=== PATIENT | female | born 1935 | race Caucasian/White ===

== ENCOUNTER 2017-02-22 15:23 | Inpatient (IN) ==
--- NOTE | 2017-02-22 16:30 | Emergency Department Note ---
Disposition Clinical Impression: Hyperglycemia UTI (urinary tract infection) Qualifiers: Urinary tract infection type: acute cystitis Hematuria presence: without hematuria Qualified Code(s): N30.00 - Acute cystitis without hematuria Disposition: Admitted As Inpatient Condition: Good General Adult HPI - General Chief complaint: ED General Medical Stated complaint: Elevated blood suagr Source: patient, family Mode of arrival: private vehicle Limitations: other (dementia) Nursing Notes Reviewed: Yes Vital Signs Reviewed: Yes - History of Present Illness HPI Narrative: Patient presents to the ED complaining of elevated glucose reading. Readings today have been over 600 at home. Daughter states her sugars have been high ever since she was discharged earlier this month after a brief hospitalization for possible cellulitis of her great toe. She is a long-standing diabetic and is on Lantus 12 units at night as well as NovoLog sliding scale. Daughter states her sugars are usually in the 170s in the morning, 300s in the afternoon and up to the 500s by the evening. States before her last hospitalization her sugars were typically in the low 200s. She was on IV antibiotics while hospitalized but not on any antibiotics on discharge. She is supposed to follow -up with podiatry but refused to go. Patient complained of abdominal pain, nausea, and diarrhea and vomiting she days ago and states this is why she did not go to her podiatry appointment. He also states she had 2 episodes of chest pain yesterday. Denies any chest pain today or any GI complaints today. She had a normal bowel movement this morning. Denies any urinary symptoms but she does wear depends for chronic urinary incontinence. Take some Tylenol for headache earlier. She reports chills but no fever. She has had some rhinorrhea but no sore throat or sneezing. She has a chronic dry cough with a history of COPD. She wears 2 L of oxygen at night. No recent travel or sick contacts. Daughter states she saw her PCP yesterday and admitted to trying to "starve herself" in order to better control her sugars and was found to have lost 14 pounds in the past weeks. Her PCP, Dr. Ferris instructed the daughter to bring her to the ED if her sugars were over over 300 and he felt that she needed possible inpatient management for better control of her glucose. Therefore with her high readings today daughter brought her to the ED. On arrival fingerstick glucose was 516 followed by 520. Pain Scale: 0 - Related Data Home Medications Medication Instructions Recorded Confirmed Citalopram Hydrobromide [Celexa] 20 mg PO DAILY 05/15/15 02/22/17 Aspirin [Adult Low Dose Aspirin EC] 81 mg PO QAM 08/09/15 02/22/17 Atorvastatin [Lipitor] 10 mg PO HS 08/09/15 02/22/17 Insulin Glargine,Hum.rec.anlog 12 unit SQ HS 08/09/15 02/22/17 [Lantus Solostar] Levothyroxine [Synthroid] 25 mcg PO QAM 08/09/15 02/22/17 Spironolact/Hydrochlorothiazid 1 each PO QAM 08/09/15 02/22/17 [Aldactazide 25-25 Tablet] Carbidopa/Levodopa 1 each PO TID 02/05/17 02/22/17 [Carbidopa-Levodopa 25-100 Tab] Cranberry Conc/C/Bacill Coag [Azo 1 each PO DAILY 02/05/17 02/22/17 Cranberry Tablet] Fenofibrate Nanocrystallized 48 mg PO DAILY 02/05/17 02/22/17 [Tricor] Oxygen 2 l NS HS 02/05/17 02/22/17 SitaGLIPtin [Januvia] 100 mg PO DAILY 02/05/17 02/22/17 Insulin ASPART [NovoLOG] 0 unit SQ TIDWM 02/22/17 02/22/17 Previous Rx's Medication Instructions Recorded Channing/Poly/Luanne OINT [Triple 1 appl TP QID #1 tube 02/06/17 Antibiotic Ointment] Allergies Allergy/AdvReac Type Severity Reaction Status Date / Time codeine Allergy Rash Verified 02/05/17 17:07 Constitutional: Reports: weight change (intentional). Denies: fever, chills, weakness Eyes: Denies: eye pain, eye discharge, vision change ENT ED: Denies: ear pain, throat pain, dental pain, hearing loss, epistaxis, congestion, dysphagia Cardiovascular: Denies: chest pain, palpitations, dyspnea on exertion, edema, syncope Respiratory: Denies: cough, dyspnea, wheezes, hemoptysis, stridor Gastrointestinal: Denies: abdominal pain, nausea, vomiting, diarrhea, constipation, hematemesis, melena, hematochezia Genitourinary: Reports: as per HPI (incontinence). Denies: dysuria, frequency, hematuria, discharge Musculoskeletal: Denies: back pain, neck pain, arthralgia, myalgia Integumentary: Denies: rash, abrasion, lesions Neurological: Denies: headache, weakness, numbness, paresthesias, confusion, abnormal gait, vertigo Endocrine: Reports: as per HPI (increasing hyperglycemia). 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[employer] history: Reports: no [employer]TE[employer] history - Social History Smoking Status: Former smoker Smokeless Tobacco Status: No Alcohol use: Reports: none Drug use: Reports: none Physical Exam - General Limitations: no limitations, other General appearance: alert, in no apparent distress - Head Head exam: atraumatic, normocephalic, normal inspection - Eye Eye exam: Present: normal appearance, PERRL, EOMI - ENT ENT exam: normal exam, normal oropharynx, mucous membranes moist - Neck Neck exam: Present: normal inspection, full ROM, trachea midline - Chest Chest inspection: Present: normal inspection, symmetric chest wall rise - Respiratory Respiratory exam: Present: normal lung sounds bilaterally - Cardiovascular Cardiovascular exam: Present: regular rate, normal rhythm, normal heart sounds - Abdominal Exam Abdominal exam: Present: soft, Non-Tender. Absent: tenderness, distention, guarding, rebound, rigidity - Extremities Exam Extremities exam: Present: normal inspection, full ROM. Absent: tenderness, pedal edema - Expanded Lower Extremity Exam Foot/toe exam: Present: erythema (mild, L great toe, no swelling or warmth) - Back Exam Back exam: Present: normal inspection, full ROM. Absent: tenderness - Neurological Exam Neurological exam: Present: alert, oriented X3 - Psychiatric Psychiatric exam: Present: normal affect, normal mood - Skin Skin exam: Present: warm, dry, intact, normal color Course Course Narrative: Reason presents to the ED with report of increasing hyperglycemia since recent hospitalization for possible toe cellulitis. Review of records shows that she was seen by podiatry who felt that she just needed outpatient podiatry care and topical antibiotic ointment. Glucose on arrival was in the 500s so we will check routine labs to rule out DKA and search for source of infection or other precipitating factor. Given her report of recent chest pain loss of check EKG and troponin. - Reevaluation(s) Reevaluation #1: EKG shows normal sinus rhythm with no ischemic changes. Laboratory studies reveal hyperglycemia but no evidence of DKA. Urinalysis did show evidence of a UTI. She is given IV fluids and insulin in the ED. She was started on antibiotics for her UTI. Given her uncontrolled sugars with current infection she would benefit from admission for IV antibiotics and glucose control. Patient and daughter are in agreement. I spoke to the hospitalist information systems security specialist, Dr. Hamilton who has agreed to accept patient. Vital Signs Temperature 99.6 F 02/22/17 15:27 Pulse Rate 93 02/22/17 15:27 Respiratory Rate 16 02/22/17 15:27 Blood Pressure 134/55 02/22/17 15:27 O2 Sat by Pulse Oximetry 97 02/22/17 15:27 Temperature 98.1 F 02/23/17 05:28 Pulse Rate 96 02/23/17 05:28 Respiratory Rate 18 02/23/17 05:28 Blood Pressure 152/67 02/23/17 05:28 O2 Sat by Pulse Oximetry 92 02/23/17 05:28 Oxygen Delivery Oxygen Delivery Room Air Medical Decision Making - Medical Records Medical records reviewed: Yes I reviewed the patient's medical records. - Lab Data Lab results reviewed: Yes I reviewed the patient's lab results. Result diagrams: 02/22/17 16:30 02/22/17 16:30 Lab Results 02/22/17 02/22/17 02/22/17 Range/Units 15:38 15:39 16:13 WBC (4.3-11.1) K/mcL RBC (3.82-4.97) M/mcL Hgb (11.5-15.4) g/dL Hct (35.3-44.9) % MCV (83.0-100.0) fL MCH (28.0-33.3) pg MCHC (31.6-35.5) g/dL RDW (11.5-14.5) % Plt Count (140-400) K/mcL MPV (9.4-12.4) fL Immature Gran % (0-4) % Seg Neutrophils % % Lymphocytes % % Monocytes % % Eosinophils % % Basophils % % Neutrophils # (1.6-8.9) K/mcL Lymphocytes # (0.6-4.6) K/mcL Monocytes # (0.0-1.3) K/mcL Eosinophils # (0.0-0.6) K/mcL Basophils # (0.0-0.2) K/mcL VBG pH (7.32-7.42) pH Units VBG pCO2 (41-51) mmHg VBG pO2 (25-40) mmHg VBG HCO3 (21-27) mEq/L Sodium (136-145) mEq/L Potassium (3.5-4.5) mEq/L Chloride (98-109) mEq/L Carbon Dioxide (19-29) mEq/L BUN (7-20) mg/dL Creatinine (0.57-1.11) mg/dL Est GFR ( Amer) (> 60) Est GFR (Non-Af Amer) (> 60) BUN/Creatinine Ratio (6-26) Glucose (70-99) mg/dL POC Glucose 520 H* 516 H* (58-89) Calculated Osmolality (280-300) Calcium (8.6-10.8) mg/dL Total Bilirubin 0.3 (0.2-1.2) mg/dL Direct Bilirubin 0.2 (0.0-0.5) mg/dL Indirect Bilirubin 0.1 (0.0-1.2) mg/dL AST 8 (5-34) Units/L ALT 6 (0-55) Units/L Alkaline Phosphatase 59 (38-126) Units/L Troponin I (0-0.03) ng/mL Serum Total Protein 6.9 (6.0-8.3) g/dL Albumin 3.4 L (3.5-5.0) g/dL Globulin 3.5 (2.4-3.5) g/dL Albumin/Globulin Ratio 1.0 L (1.1-2.2) Lipase 11 (8-78) Units/L Beta-Hydroxybutyric Acd (0.02-0.27) mmol/L Urine Color (Yellow) Urine Clarity (Clear) Urine pH (5.0-8.0) pH Units Ur Specific [place] (1.010-1.025) Urine Protein (Neg-Trace) mg/dL Urine Glucose (UA) (Normal) mg/dL Urine Ketones (Negative) mg/dL Urine Blood (Negative) Urine Nitrite (Negative) Urine Bilirubin (Negative) Urine Urobilinogen (Normal) mg/dL Ur Leukocyte Esterase (Negative) Urine Microscopic WBC (0-3) per hpf Ur Squamous Epith Cells (None-Few) per lpf Urine Bacteria (None-Few) per hpf Urine Mucus (Few) Ur Culture Indicated? (NO) 02/22/17 02/22/17 02/22/17 Range/Units 16:13 16:24 16:30 WBC 8.7 (4.3-11.1) K/mcL RBC 4.13 (3.82-4.97) M/mcL Hgb 10.8 L (11.5-15.4) g/dL Hct 34.8 L (35.3-44.9) % MCV 84.3 (83.0-100.0) fL MCH 26.2 L (28.0-33.3) pg MCHC 31.0 L (31.6-35.5) g/dL RDW 14.2 (11.5-14.5) % Plt Count 225 (140-400) K/mcL MPV 12.1 (9.4-12.4) fL Immature Gran % 0.6 (0-4) % Seg Neutrophils % 78.7 % Lymphocytes % 15.3 % Monocytes % 3.9 % Eosinophils % 1.2 % Basophils % 0.3 % Neutrophils # 6.8 (1.6-8.9) K/mcL Lymphocytes # 1.3 (0.6-4.6) K/mcL Monocytes # 0.3 (0.0-1.3) K/mcL Eosinophils # 0.1 (0.0-0.6) K/mcL Basophils # 0.0 (0.0-0.2) K/mcL VBG pH (7.32-7.42) pH Units VBG pCO2 (41-51) mmHg VBG pO2 (25-40) mmHg VBG HCO3 (21-27) mEq/L Sodium (136-145) mEq/L Potassium (3.5-4.5) mEq/L Chloride (98-109) mEq/L Carbon Dioxide (19-29) mEq/L BUN (7-20) mg/dL Creatinine (0.57-1.11) mg/dL Est GFR ( Amer) (> 60) Est GFR (Non-Af Amer) (> 60) BUN/Creatinine Ratio (6-26) Glucose (70-99) mg/dL POC Glucose (58-89) Calculated Osmolality (280-300) Calcium (8.6-10.8) mg/dL Total Bilirubin (0.2-1.2) mg/dL Direct Bilirubin (0.0-0.5) mg/dL Indirect Bilirubin (0.0-1.2) mg/dL AST (5-34) Units/L ALT (0-55) Units/L Alkaline Phosphatase (38-126) Units/L Troponin I 0.01 (0-0.03) ng/mL Serum Total Protein (6.0-8.3) g/dL Albumin (3.5-5.0) g/dL Globulin (2.4-3.5) g/dL Albumin/Globulin Ratio (1.1-2.2) Lipase (8-78) Units/L Beta-Hydroxybutyric Acd (0.02-0.27) mmol/L Urine Color Yellow (Yellow) Urine Clarity Slightly Cloudy A (Clear) Urine pH 5.0 (5.0-8.0) pH Units Ur Specific Whately 1.015 (1.010-1.025) Urine Protein Negative (Neg-Trace) mg/dL Urine Glucose (UA) >=1000 H (Normal) mg/dL Urine Ketones Negative (Negative) mg/dL Urine Blood Negative (Negative) Urine Nitrite Positive A (Negative) Urine Bilirubin Negative (Negative) Urine Urobilinogen Normal (Normal) mg/dL Ur Leukocyte Esterase Small H (Negative) Urine Microscopic WBC 30-50 H (0-3) per hpf Ur Squamous Epith Cells Few (None-Few) per lpf Urine Bacteria Moderate H (None-Few) per hpf Urine Mucus Few (Few) Ur Culture Indicated? YES A (NO) 02/22/17 02/22/17 02/22/17 Range/Units 16:30 16:30 19:00 WBC (4.3-11.1) K/mcL RBC (3.82-4.97) M/mcL Hgb (11.5-15.4) g/dL Hct (35.3-44.9) % MCV (83.0-100.0) fL MCH (28.0-33.3) pg MCHC (31.6-35.5) g/dL RDW (11.5-14.5) % Plt Count (140-400) K/mcL MPV (9.4-12.4) fL Immature Gran % (0-4) % Seg Neutrophils % % Lymphocytes % % Monocytes % % Eosinophils % % Basophils % % Neutrophils # (1.6-8.9) K/mcL Lymphocytes # (0.6-4.6) K/mcL Monocytes # (0.0-1.3) K/mcL Eosinophils # (0.0-0.6) K/mcL Basophils # (0.0-0.2) K/mcL VBG pH 7.32 (7.32-7.42) pH Units VBG pCO2 47.1 (41-51) mmHg VBG pO2 41.6 H (25-40) mmHg VBG HCO3 24.0 (21-27) mEq/L Sodium 132 L (136-145) mEq/L Potassium 5.0 H (3.5-4.5) mEq/L Chloride 97 L (98-109) mEq/L Carbon Dioxide 22 (19-29) mEq/L BUN 28 H (7-20) mg/dL Creatinine 1.89 H (0.57-1.11) mg/dL Est GFR ( Amer) 31 L (> 60) Est GFR (Non-Af Amer) 25 L (> 60) BUN/Creatinine Ratio 15 (6-26) Glucose 553 H* (70-99) mg/dL POC Glucose 255 H (58-89) Calculated Osmolality 305 H (280-300) Calcium 9.2 (8.6-10.8) mg/dL Total Bilirubin (0.2-1.2) mg/dL Direct Bilirubin (0.0-0.5) mg/dL Indirect Bilirubin (0.0-1.2) mg/dL AST (5-34) Units/L ALT (0-55) Units/L Alkaline Phosphatase (38-126) Units/L Troponin I (0-0.03) ng/mL Serum Total Protein (6.0-8.3) g/dL Albumin (3.5-5.0) g/dL Globulin (2.4-3.5) g/dL Albumin/Globulin Ratio (1.1-2.2) Lipase (8-78) Units/L Beta-Hydroxybutyric Acd 0.20 (0.02-0.27) mmol/L Urine Color (Yellow) Urine Clarity (Clear) Urine pH (5.0-8.0) pH Units Ur Specific Whately (1.010-1.025) Urine Protein (Neg-Trace) mg/dL Urine Glucose (UA) (Normal) mg/dL Urine Ketones (Negative) mg/dL Urine Blood (Negative) Urine Nitrite (Negative) Urine Bilirubin (Negative) Urine Urobilinogen (Normal) mg/dL Ur Leukocyte Esterase (Negative) Urine Microscopic WBC (0-3) per hpf Ur Squamous Epith Cells (None-Few) per lpf Urine Bacteria (None-Few) per hpf Urine Mucus (Few) Ur Culture Indicated? (NO) - EKG Data EKG #1 EKG attestation: Yes I reviewed and interpreted this EKG. EKG shows normal: sinus rhythm Rate: normal Rhythm: NSR [place]/QRS: normal Interpretation: no acute changes, normal EKG
[2017-02-22 16:31] LABS: Bilirubin,Urine Negative (Negative); Blood,Urine Negative (Negative); Clarity,Urine Slightly Cloudy (Clear); Color,Urine Yellow (Yellow); Glucose,Urine (UA) >=1000 mg/dL (Normal); Ketones,Urine Negative (Negative); Leukocyte Esterase,Urine Small (Negative); Nitrite,Urine Positive (Negative); Protein,Urine Negative (Neg-Trace); Specific Gravity,Urine 1.015 (1.010-1.025); Urobilinogen,Urine Normal (Normal)
[2017-02-22] MEDS ORDERED: 0.9 % Sodium Chloride 1,000 ML IVC ONE (16:33)
[2017-02-22 16:44] LABS: Basophils % 0.3 %; Eosinophils # 0.1 K/mcL (0.0-0.6); Eosinophils % 1.2 %; Hematocrit 34.8 % (35.3-44.9); Hemoglobin 10.8 g/dL (11.5-15.4); Immature Granulocytes % 0.6 % (0-4); Lymphocytes # 1.3 K/mcL (0.6-4.6); Lymphocytes % 15.3 %; Mean Corpuscular Hemoglobin 26.2 pg (28.0-33.3); Mean Corpuscular Volume 84.3 fL (83.0-100.0); Mean Platelet Volume 12.1 fL (9.4-12.4); Monocytes # 0.3 K/mcL (0.0-1.3); Monocytes % 3.9 %; Neutrophils # 6.8 K/mcL (1.6-8.9); Platelet Count 225 K/mcL (140-400); Red Blood Count 4.13 M/mcL (3.82-4.97); Red Cell Distribution Width 14.2 % (11.5-14.5); Segmented Neutrophils % 78.7 %
[2017-02-22 16:44] LABS: Bacteria,Urine Moderate per hpf (None-Few); Squamous Epithelial Cell,Urine Few per lpf (None-Few); WBC,Urine 30-50 per hpf (0-3)
[2017-02-22 16:45] LABS: Mucus,Urine Few (Few)
[2017-02-22 16:48] LABS: VBG PCO2 47.1 mmHg (41-51); VBG PH 7.32 pH Units (7.32-7.42); VBG PO2 41.6 mmHg (25-40)
[2017-02-22 16:54] LABS: Beta-Hydroxybutyric Acid 0.2 mmol/L (0.02-0.27)
[2017-02-22 16:58] LABS: Calcium 9.2 mg/dL (8.6-10.8)
[2017-02-22] MEDS ORDERED: Cefepime HCl 1,000 MG in D5% in Water (Mini-Bag+) 100 ML IVPB STA (17:17)
[2017-02-22] MEDS ORDERED: Insulin Regular, Human 100 UNIT/ML IV ONE (17:32)
[2017-02-22 17:35] LABS: Albumin 3.4 g/dL (3.5-5.0); Bilirubin,Direct 0.2 mg/dL (0.0-0.5); Bilirubin,Indirect 0.1 mg/dL (0.0-1.2); Bilirubin,Total 0.3 mg/dL (0.2-1.2); Globulin 3.5 g/dL (2.4-3.5); Total Protein 6.9 g/dL (6.0-8.3)
[2017-02-22] MEDS ORDERED: Naloxone 0.4 MG/ML INJ IVP PRN ×2 (19:11→19:51)
[2017-02-22] MEDS ORDERED: 0.9 % Sodium Chloride 1,000 ML IVC SCH (19:15)
[2017-02-22] MEDS ORDERED: D5% in Water 1,000 ML IVC PRN ×2 (19:17→19:51)
[2017-02-22] MEDS ORDERED: Dextrose Gel 15 GM PO PRN ×4 (19:17→19:51)
[2017-02-22] MEDS ORDERED: *HR* Dextrose 50 % in Water (Syg) 50 ML SYRINGE IVP PRN ×2 (19:17→19:51)
[2017-02-22] MEDS ORDERED: Insulin LISPRO 300 UNITS/3 ML VIAL SQ SCH (21:00)
[2017-02-22] MEDS ORDERED: NON-FORMULARY MEDICATION 1 EACH EACH (Oxygen [Oxygen] 2 L) NS SCH (21:00)
[2017-02-22] MEDS ORDERED: Insulin DETEMIR 100 UNIT/ML X5UNITS SQ SCH (21:00)
[2017-02-22] MEDS: Insulin LISPRO 300 UNITS/3 ML VIAL SQ SCH (21:37)
[2017-02-22] MEDS: Carbidopa/Levodopa 25/100 TABLET PO SCH (21:45)
[2017-02-22] MEDS: Insulin DETEMIR 100 UNIT/ML X5UNITS SQ SCH (21:45)
[2017-02-22] MEDS: 0.9 % Sodium Chloride 1,000 ML IVC SCH (21:46)
[2017-02-22] MEDS: Neosporin OINT 15 GM TUBE TP SCH (21:46)
[2017-02-23] MEDS: Levothyroxine 25 MCG TABLET PO SCH (06:26)
[2017-02-23] MEDS: 0.9 % Sodium Chloride 1,000 ML IVC SCH ×2 (06:29→18:06)
[2017-02-23] MEDS ORDERED: Insulin LISPRO 300 UNITS/3 ML VIAL SQ SCH (07:30)
[2017-02-23] MEDS: Insulin LISPRO 300 UNITS/3 ML VIAL SQ SCH ×3 (07:55→20:01)
[2017-02-23] MEDS ORDERED: Spironolactone 25 MG TABLET PO SCH (09:00)
[2017-02-23] MEDS ORDERED: hydroCHLOROthiazide 25 MG TABLET PO SCH (09:00)
[2017-02-23] MEDS: Fenofibrate 54 MG TABLET PO SCH (09:42)
[2017-02-23] MEDS: Neosporin OINT 15 GM TUBE TP SCH ×3 (09:43→22:19)
[2017-02-23] MEDS: Carbidopa/Levodopa 25/100 TABLET PO SCH ×3 (09:43→20:01)
[2017-02-23] MEDS: Aspirin Enteric Coated 81 MG Tablet PO SCH (09:43)
[2017-02-23] MEDS: *HR* SitaGLIPtin 25 MG TABLET PO SCH (09:43)
--- NOTE | 2017-02-23 12:00 | Internal Med History&Physical ---
Date of Encounter: 02/23/17 Time of Encounter: 11:25 Assessment and Plan (1) Diabetes mellitus Current visit: No Status: Chronic Appears poorly controlled. We will check hemoglobin A1c in a.m. Will increase Levemir/Lantus and continue Januvia. Will do Accu-Cheks with SSI. 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 Monitor renal indices. (3) Hyperkalemia Current visit: No Status: Acute We will hold Aldactazide and give IV fluids. Recheck labs in a.m. (4) Weakness Current visit: No Status: Acute We will order PT and OT evaluations. (5) Anemia Current visit: Yes Status: Acute We will check anemia testing in a.m. Qualifiers: Anemia type: unspecified type Qualified Code(s): D64.9 - Anemia, unspecified (6) Hypertension Current visit: No Status: Chronic We will hold Aldactazide because of azotemia. Will monitor blood pressure and adjust medications as needed. Qualifiers: Hypertension type: essential hypertension Qualified Code(s): I10 - Essential (primary) hypertension Internal Medicine - H&P: HPI Chief complaint: Hyperglycemia, azotemia Admitted From: Home Plans for Post Hospital Care: Home History of present illness: Ms. Chen is a 81 year old female who came to emergency room after she was found to have blood sugar over 500 mg % at home. She had been instructed by her PCP Dr. Ferris at a office visit earlier yesterday to come to emergency room if blood sugar misty above 300 mg %. She was evaluated in the emergency room and admitted to [facility] floor for ongoing care needs. She was diagnosed with DM 2 approximately 1983. Her daughter who supplies most of the history states her blood sugars have been consistently over 300 mg % for the last 2 weeks. She has hyperlipidemia and hypothyroidism. Past Med Surg Social Fam HX - Past Medical History Medical history: COPD, CVA, dementia, diabetes, hyperlipidemia, hypertension, renal disease, other Psychiatric history: anxiety, depression - Past Surgical History Surgical History: cholecystectomy - Social History Smoking Status: Former smoker Packs per day: 3 packs Smokeless Tobacco Status: No Alcohol use: none Drug use: none - Family History Father Family Member Ethnicity: Non- Living Status: Hx Family Cancer: Yes (Head) Brother Family Member Ethnicity: Non- Living Status: Hx Family Cancer: Yes (Throat, Lung) Hx Family Endocrine Disorder: Yes (DM) Sister Family Member Ethnicity: Non- Living Status: Still Living Hx Family Cancer: Yes (Breast CA, double mastectomy) Hx Family Endocrine Disorder: Yes (DM) Mother Family Member Ethnicity: Non- Living Status: Hx Family Cardiac Disorders: No Hx Family Respiratory Disorders: No Hx Family Cancer: No Hx Family GI Disorders: No Hx Family Endocrine Disorder: Yes (DM) Hx Family Neuromuscular Disorders: No Hx Family Neurologic Disorders: No Hx Family HEENT Disorders: No Hx Family Autoimmune Disorders: No Internal Medicine - H&P: Meds Citalopram Hydrobromide [Celexa] 20 mg PO DAILY 05/15/15 [History] Aspirin [Adult Low Dose Aspirin EC] 81 mg PO QAM 08/09/15 [History] Atorvastatin [Lipitor] 10 mg PO HS 08/09/15 [History] Insulin Glargine,Hum.rec.anlog [Lantus Solostar] 12 unit SQ HS 08/09/15 [History ] Levothyroxine [Synthroid] 25 mcg PO QAM 08/09/15 [History] Spironolact/Hydrochlorothiazid [Aldactazide 25-25 Tablet] 1 each PO QAM [History] Carbidopa/Levodopa [Carbidopa-Levodopa 25-100 Tab] 1 each PO TID 02/05/17 [ History] Cranberry Conc/C/Bacill Coag [Azo Cranberry Tablet] 1 each PO DAILY 02/05/17 [ History] Fenofibrate Nanocrystallized [Tricor] 48 mg PO DAILY 02/05/17 [History] Oxygen 2 l NS HS 02/05/17 [History] SitaGLIPtin [Januvia] 100 mg PO DAILY 02/05/17 [History] Channing/Poly/Luanne OINT [Triple Antibiotic Ointment] 1 appl TP QID #1 tube 02/06/17 [ Rx] Insulin ASPART [NovoLOG] 0 unit SQ TIDWM 02/22/17 [History] Allergies codeine Allergy (Verified 02/05/17 17:07) Rash All Systems PM: A 10-system review of systems was performed and is negative for pertinent findings except as documented above in the HPI. Review of systems: Gen.: Her weight increased from 76.657 kg at the June 2014 hospitalization to 89.358 kg at the June 2015 hospitalization but has decreased to 78.018 kg on admission now. The daughter states this weight loss was intentional by the patient who who reported she felt weight loss would improve her blood sugar control. Cardiovascular: She has history of hypertension but denies OR heart failure angina DVT or pulmonary embolus. She had stress test approximately 02/2014 which was negative per her report Respiratory: She smoked from age [age] up to 3 packs per day She has not had PFTs. She states she wears oxygen at home at bedtime. GI: She denies disorders of her liver or exocrine pancreas. She is status post cholecystectomy. : She has CKD stage III but has not followed with her feather maker for over a year. She denies other kidney or bladder disorders Neurologic: She claims she had a stroke in 1998 without significant permanent neurologic deficit. She denies other large distribution strokes or seizures. She has diagnoses of Parkinson's disease and early dementia. She has intermittently complained of headache for the last 2-3 weeks Endocrine: As per history of present illness Hematology/oncology: She has anemia with workup in the past negative. She had thrombocytopenia 2014 which resolved. Psychiatric: She has depression but denies anxiety or other mental health issues Musk skeletal: She has DJD but no known gout or osteoporosis. - Constitutional Vitals: Temp Pulse Resp BP Pulse Ox 98.2 F 93 16 108/63 98 02/23/17 07:08 02/23/17 07:08 02/23/17 07:08 02/23/17 07:08 02/23/17 07:08 Exam: Gen.: She is a well-developed well-nourished female lying quietly in bed who appears in no acute distress at present time HEENT: Head is atraumatic and normocephalic. Eyes: EOMI. There is no scleral icterus. Mouth: Mucosa is moist. Neck: Supple and nontender. There is no thyromegaly or adenopathy noted. Heart: Regular without murmurs gallops or ectopics Lungs: No wheezes or crackles are heard. Abdomen: Soft and nontender. No masses or guarding are noted. Extremities: There is no cyanosis edema or clubbing noted. Dorsalis pedis and posterior tibial pulses are trace palpable bilaterally. She has minimal DJD changes of her hands. Neurologic: Mental status: She is able to answer most questions appropriately. She knows my name and can do simple money math problems. Cranial nerves: Smile is symmetric. Forehead wrinkles bilaterally. Tongue protrudes midline. EOMI. She is hard of hearing. Motor: There is no pronator drift. She has minimal cogwheeling and rigidity on passive range of motion of her arms and wrists. She has a fine resting tremor of her thumbs. Cerebellar: Finger to nose intact bilaterally. Skin: Warm and dry Internal Med - H&P Results - Labs CBC & Chem 7: 02/22/17 16:30 02/22/17 16:30 - VTE Reasons for not Prescribing Prophylaxis: Treatment not Indicated - Low risk for VTE
--- NOTE | 2017-02-23 14:12 | Electrocardiograph Report ---
[address] [address] Test Date: 2017-02-22 Pat Name: Sarah Chen Department: 9201 Room: [facility] Gender: F Verification Lead: [id number] : 1935 Requested By: Ankita Godinez Order Number: [id number] Reading MD: Roberto Conroy MD Measurements Intervals [place] Rate: 82 P: 0 [place]: 177 QRS: 74 QRSD: 98 T: 66 QT: 378 QTc: 417 Interpretive Statements SINUS RHYTHM Electronically Signed On 02-23-2017 14:10:34 EDT by Roberto Conroy MD
[2017-02-23] MEDS: Insulin DETEMIR 100 UNIT/ML X5UNITS SQ SCH (20:01)
[2017-02-24] MEDS: Levothyroxine 25 MCG TABLET PO SCH (05:12)
[2017-02-24 05:43] LABS: Basophils % 0.6 %; Eosinophils # 0.3 K/mcL (0.0-0.6); Eosinophils % 4.2 %; Hematocrit 33.3 % (35.3-44.9); Hemoglobin 10.4 g/dL (11.5-15.4); Immature Granulocytes % 0.6 % (0-4); Lymphocytes # 1.4 K/mcL (0.6-4.6); Lymphocytes % 21.1 %; Mean Corpuscular HGB Conc 31.2 g/dL (31.6-35.5); Mean Corpuscular Hemoglobin 26.5 pg (28.0-33.3); Mean Corpuscular Volume 84.9 fL (83.0-100.0); Mean Platelet Volume 12.4 fL (9.4-12.4); Monocytes # 0.4 K/mcL (0.0-1.3); Monocytes % 5.6 %; Neutrophils # 4.4 K/mcL (1.6-8.9); Platelet Count 223 K/mcL (140-400); Red Blood Count 3.92 M/mcL (3.82-4.97); Red Cell Distribution Width 14.3 % (11.5-14.5); Segmented Neutrophils % 67.9 %
[2017-02-24 06:04] LABS: Calcium 9.3 mg/dL (8.6-10.8); Magnesium 1.5 mg/dL (1.6-2.6)
[2017-02-24 06:26] LABS: Thyroid Stimulating Hormone 2.757 mcIU/mL (0.350-4.840)
[2017-02-24] MEDS: Insulin LISPRO 300 UNITS/3 ML VIAL SQ SCH ×4 (07:48→20:43)
[2017-02-24] MEDS: *HR* SitaGLIPtin 25 MG TABLET PO SCH ×2 (08:31→10:54)
[2017-02-24] MEDS: Aspirin Enteric Coated 81 MG Tablet PO SCH (08:31)
[2017-02-24] MEDS: Fenofibrate 54 MG TABLET PO SCH (08:31)
[2017-02-24] MEDS: Carbidopa/Levodopa 25/100 TABLET PO SCH ×3 (08:31→20:42)
[2017-02-24 08:52] LABS: Hemoglobin A1C 11.9 %
--- NOTE | 2017-02-24 09:06 | Internal Med Progress Note ---
Date of Encounter: 02/24/17 Time of Encounter: 09:00 - Assessment and plan (1) Diabetes mellitus Current Visit: No Status: Chronic Assessment and plan: February 24. Hemoglobin A1c significantly elevated at 11.9%. Blood sugars reviewed. Will increase Levemir dose and Januvia dose. Continue Accu-Cheks with SSI. 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 Creatinine significantly improved to 1.11 with estimated GFR 47. Continue to hold Aldactazide and give IV fluids. Recheck labs in a.m. (3) Hyperkalemia Current Visit: No Status: Acute Assessment and plan: February 24. Unchanged at 5.0. Continue IV fluids and withholding Aldactazide. Recheck labs in a.m. (4) Weakness Current Visit: No Status: Acute Assessment and plan: February 24. Continue PT and OT intervention. (5) Anemia Current Visit: Yes Status: Acute Assessment and plan: February 24. Anemia testing pending. We will discontinue aspirin Qualifiers: Anemia type: unspecified type Qualified Code(s): D64.9 - Anemia, unspecified (6) Hypertension Current Visit: No Status: Chronic Assessment and plan: February 24. Continue withholding Aldactazide and monitoring blood pressure. Qualifiers: Hypertension type: essential hypertension Qualified Code(s): I10 - Essential (primary) hypertension - Subjective Interval history: February 24. She has no new complaints - Constitutional Vitals: Temp Pulse Resp BP Pulse Ox 98.3 F 83 16 133/85 93 02/24/17 06:38 02/24/17 07:53 02/24/17 06:38 02/24/17 07:53 02/24/17 07:53 Exam: She is resting comfortably in bed. Her affect is cheerful. I reviewed her medications and lab results. Internal Medicine: Result - Labs CBC & Chem 7: 02/24/17 04:59 02/24/17 04:59 Labs: Short CBC 02/24/17 Range/Units 04:59 WBC 6.4 (4.3-11.1) K/mcL Hgb 10.4 L (11.5-15.4) g/dL Hct 33.3 L (35.3-44.9) % Plt Count 223 (140-400) K/mcL Neutrophils # 4.4 (1.6-8.9) K/mcL BMP 02/24/17 04:59 Sodium 138 Potassium 5.0 H Chloride 104 Carbon Dioxide 24 BUN 18 D Creatinine 1.11 Glucose 117 H Calcium 9.3 - VTE Reasons for not Prescribing Prophylaxis: Treatment not Indicated - Low risk for VTE Consult Discharge Plan - Plan Referrals: Cesar Ferris MD [Primary Care Provider] - 1 week
[2017-02-24] MEDS: Neosporin OINT 15 GM TUBE TP SCH ×3 (09:32→20:43)
[2017-02-24] MEDS: Magnesium Oxide 400 MG TABLET PO SCH ×2 (10:54→20:42)
[2017-02-24 11:08] LABS: Folate 7.2 ng/mL (7.0-31.4)
[2017-02-24] MEDS: Insulin DETEMIR 100 UNIT/ML X5UNITS SQ SCH (20:42)
[2017-02-24] MEDS ORDERED: Insulin DETEMIR 100 UNIT/ML X5UNITS SQ SCH (21:00)
[2017-02-25] MEDS: Neosporin OINT 15 GM TUBE TP SCH ×5 (01:32→19:52)
[2017-02-25 05:18] LABS: Basophils % 0.6 %; Eosinophils # 0.3 K/mcL (0.0-0.6); Eosinophils % 4.7 %; Hematocrit 34.2 % (35.3-44.9); Hemoglobin 10.5 g/dL (11.5-15.4); Immature Granulocytes % 0.6 % (0-4); Lymphocytes # 1.3 K/mcL (0.6-4.6); Lymphocytes % 19.5 %; Mean Corpuscular HGB Conc 30.7 g/dL (31.6-35.5); Mean Corpuscular Hemoglobin 25.9 pg (28.0-33.3); Mean Corpuscular Volume 84.4 fL (83.0-100.0); Mean Platelet Volume 11.5 fL (9.4-12.4); Monocytes # 0.4 K/mcL (0.0-1.3); Monocytes % 5.9 %; Neutrophils # 4.6 K/mcL (1.6-8.9); Platelet Count 219 K/mcL (140-400); Red Blood Count 4.05 M/mcL (3.82-4.97); Red Cell Distribution Width 14.2 % (11.5-14.5); Segmented Neutrophils % 68.7 %
[2017-02-25 05:42] LABS: Calcium 9.6 mg/dL (8.6-10.8); Potassium 5.7 mEq/L (3.5-4.5)
[2017-02-25] MEDS: Levothyroxine 25 MCG TABLET PO SCH (06:24)
[2017-02-25] MEDS: *HR* Enoxaparin 40 MG/0.4 ML SYRINGE SQ SCH (06:25)
[2017-02-25] MEDS: Magnesium Oxide 400 MG TABLET PO SCH ×2 (08:25→19:46)
[2017-02-25] MEDS: Carbidopa/Levodopa 25/100 TABLET PO SCH ×3 (08:25→19:35)
[2017-02-25] MEDS: *HR* SitaGLIPtin 25 MG TABLET PO SCH (08:26)
[2017-02-25] MEDS: Fenofibrate 54 MG TABLET PO SCH (08:26)
--- NOTE | 2017-02-25 08:53 | Internal Med Progress Note ---
Date of Encounter: 02/25/17 Time of Encounter: 08:45 - Assessment and plan (1) Diabetes mellitus Current Visit: No Status: Chronic Assessment and plan: February 24. Hemoglobin A1c significantly elevated at 11.9%. Blood sugars reviewed. Will increase Levemir dose and Januvia dose. Continue Accu-Cheks with SSI. 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 Creatinine significantly improved to 1.11 with estimated GFR 47. Continue to hold Aldactazide and give IV fluids. Recheck labs in a.m. February 25. Creatinine minimally higher at 1.17 today. Remain off Aldactazide. We will discontinue IV fluids. (3) Hyperkalemia Current Visit: No Status: Acute Assessment and plan: February 24. Unchanged at 5.0. Continue IV fluids and withholding Aldactazide. Recheck labs in a.m. February 25. Potassium has risen to 5.7. Remain off Aldactazide. We will give Kayexalate today. (4) Weakness Current Visit: No Status: Acute Assessment and plan: February 24. Continue PT and OT intervention. (5) Anemia Current Visit: Yes Status: Acute Assessment and plan: February 24. Anemia testing pending. We will discontinue aspirin February 25. Anemia testing results reviewed. Will start ferrous sulfate with vitamin C. Qualifiers: Anemia type: unspecified type Qualified Code(s): D64.9 - Anemia, unspecified (6) Hypertension Current Visit: No Status: Chronic Assessment and plan: February 24. Continue withholding Aldactazide and monitoring blood pressure. Qualifiers: Hypertension type: essential hypertension Qualified Code(s): I10 - Essential (primary) hypertension - Subjective Interval history: February 24. She has no new complaints February 25. She has no complaints. She states she wishes to go home. She was changed from observation to inpatient status yesterday. Her daughter wishes her to have a qualifying stay for brief SNF placement - Constitutional Vitals: Temp Pulse Resp BP Pulse Ox 97.6 F 92 16 159/74 96 02/25/17 06:18 02/25/17 06:18 02/25/17 06:18 02/25/17 06:18 02/25/17 06:18 Exam: She is resting comfortably in bed and appears in no acute distress. She asked 3 times when she would get to go home. I reviewed her medications, labs, and Accu-Chek results. Internal Medicine: Result - Labs CBC & Chem 7: 02/25/17 05:06 02/25/17 05:06 Labs: Short CBC 02/25/17 Range/Units 05:06 WBC 6.7 (4.3-11.1) K/mcL Hgb 10.5 L (11.5-15.4) g/dL Hct 34.2 L (35.3-44.9) % Plt Count 219 (140-400) K/mcL Neutrophils # 4.6 (1.6-8.9) K/mcL BMP 02/25/17 05:06 Sodium 138 Potassium 5.7 H Chloride 103 Carbon Dioxide 26 BUN 19 Creatinine 1.17 H Glucose 135 H Calcium 9.6 - VTE Reasons for not Prescribing Prophylaxis: Treatment not Indicated - Low risk for VTE Consult Discharge Plan - Plan Referrals: Cesar Ferris MD [Primary Care Provider] - 1 week
[2017-02-25] MEDS: Insulin LISPRO 300 UNITS/3 ML VIAL SQ SCH ×4 (10:40→19:38)
[2017-02-25] MEDS: Insulin DETEMIR 100 UNIT/ML X5UNITS SQ SCH (19:40)
[2017-02-26] MEDS: *HR* Enoxaparin 40 MG/0.4 ML SYRINGE SQ SCH (05:46)
[2017-02-26] MEDS: Levothyroxine 25 MCG TABLET PO SCH (05:46)
[2017-02-26] MEDS: Ascorbic Acid 500 MG TABLET PO SCH (05:46)
[2017-02-26 07:18] LABS: BUN/Creatinine Ratio 16 (6-26); Blood Urea Nitrogen 16 mg/dL (7-20); Calcium 9.4 mg/dL (8.6-10.8); Carbon Dioxide 27 mEq/L (19-29); Chloride 101 mEq/L (98-109); Glucose 142 mg/dL (70-99); Osmolality,Calculated 292 (280-300); Sodium 139 mEq/L (136-145); eGFR For African Americans > 60 (> 60); eGFR For Non-African Americans 52 (> 60)
[2017-02-26] MEDS: Carbidopa/Levodopa 25/100 TABLET PO SCH ×3 (08:32→21:11)
[2017-02-26] MEDS: Magnesium Oxide 400 MG TABLET PO SCH (08:33)
[2017-02-26] MEDS: Fenofibrate 54 MG TABLET PO SCH (08:33)
[2017-02-26] MEDS: *HR* SitaGLIPtin 25 MG TABLET PO SCH (08:33)
--- NOTE | 2017-02-26 09:30 | Internal Med Progress Note ---
Date of Encounter: 02/26/17 Time of Encounter: 09:20 - Assessment and plan (1) Diabetes mellitus Current Visit: No Status: Chronic Assessment and plan: February 24. Hemoglobin A1c significantly elevated at 11.9%. Blood sugars reviewed. Will increase Levemir dose and Januvia dose. Continue Accu-Cheks with SSI. February 26. Blood sugar stable. Continue Levemir and Januvia and Accu-Cheks with SSI. Qualifiers: Diabetes mellitus type: type 2 Diabetes mellitus complication detail: with chronic kidney disease Diabetes mellitus senior care insulin use: with senior care use Chronic kidney disease stage: stage 3 (moderate) Qualified Code(s) : E11.22 - Type 2 diabetes mellitus with diabetic chronic kidney disease; N18.3 - Chronic kidney disease, stage 3 (moderate); Z79.4 - detention (current) use of insulin (2) Chronic renal insufficiency, stage III (moderate) Current Visit: No Status: Acute Assessment and plan: February 24. Creatinine significantly improved to 1.11 with estimated GFR 47. Continue to hold Aldactazide and give IV fluids. Recheck labs in a.m. February 25. Creatinine minimally higher at 1.17 today. Remain off Aldactazide. We will discontinue IV fluids. February 26. Creatinine improved to 1.02 with estimated GFR 52. (3) Hyperkalemia Current Visit: No Status: Acute Assessment and plan: February 24. Unchanged at 5.0. Continue IV fluids and withholding Aldactazide. Recheck labs in a.m. February 25. Potassium has risen to 5.7. Remain off Aldactazide. We will give Kayexalate today. February 26. Potassium improved to 5.0. We will give additional dose of Kayexalate today. (4) Weakness Current Visit: No Status: Acute Assessment and plan: February 24. Continue PT and OT intervention. (5) Anemia Current Visit: Yes Status: Acute Assessment and plan: February 24. Anemia testing pending. We will discontinue aspirin February 25. Anemia testing results reviewed. Will start ferrous sulfate with vitamin C. Qualifiers: Anemia type: unspecified type Qualified Code(s): D64.9 - Anemia, unspecified (6) Hypertension Current Visit: No Status: Chronic Assessment and plan: February 24. Continue withholding Aldactazide and monitoring blood pressure. February 26. Blood pressure shows significant fluctuation. Will observe without medication at this time.. Qualifiers: Hypertension type: essential hypertension Qualified Code(s): I10 - Essential (primary) hypertension - Subjective Interval history: February 24. She has no new complaints February 25. She has no complaints. She states she wishes to go home. She was changed from observation to inpatient status yesterday. Her daughter wishes her to have a qualifying stay for brief SNF placement February 26. She has no new complaints and again states she wishes to go home. - Constitutional Vitals: Temp Pulse Resp BP Pulse Ox 97.8 F 95 16 138/74 95 02/26/17 06:25 02/26/17 06:25 02/26/17 06:25 02/26/17 06:25 02/26/17 06:25 Exam: She is sitting in a chair at bedside and appears comfortable. Her affect is bright and cheerful. She answers questions appropriately. She is hard of hearing. I reviewed her medications and lab results. Reviewed her Accu-Cheks. Internal Medicine: Result - Labs CBC & Chem 7: 02/25/17 05:06 02/26/17 06:28 Labs: BMP 02/26/17 06:28 Sodium 139 Potassium 5.0 H Chloride 101 Carbon Dioxide 27 BUN 16 Creatinine 1.02 Glucose 142 H Calcium 9.4 - VTE Reasons for not Prescribing Prophylaxis: Treatment not Indicated - Low risk for VTE Consult Discharge Plan - Plan Referrals: Cesar Ferris MD [Primary Care Provider] - 1 week
[2017-02-26] MEDS: Insulin LISPRO 300 UNITS/3 ML VIAL SQ SCH ×4 (10:57→21:12)
[2017-02-26] MEDS: Neosporin OINT 15 GM TUBE TP SCH ×4 (10:58→21:13)
[2017-02-26] MEDS: Insulin DETEMIR 100 UNIT/ML X5UNITS SQ SCH (21:12)
[2017-02-27] MEDS: Ascorbic Acid 500 MG TABLET PO SCH (05:33)
[2017-02-27] MEDS: Levothyroxine 25 MCG TABLET PO SCH (05:33)
[2017-02-27] MEDS: *HR* Enoxaparin 40 MG/0.4 ML SYRINGE SQ SCH (05:34)
[2017-02-27 05:57] LABS: Calcium 9.5 mg/dL (8.6-10.8); Magnesium 1.7 mg/dL (1.6-2.6); Potassium 5.2 mEq/L (3.5-4.5)
[2017-02-27] MEDS: Insulin LISPRO 300 UNITS/3 ML VIAL SQ SCH ×2 (07:33→11:47)
[2017-02-27] MEDS: Carbidopa/Levodopa 25/100 TABLET PO SCH (07:47)
[2017-02-27] MEDS: *HR* SitaGLIPtin 25 MG TABLET PO SCH (07:47)
[2017-02-27] MEDS: Fenofibrate 54 MG TABLET PO SCH (07:47)
[2017-02-27 10:59] VITALS: BP 119/54
--- NOTE | 2017-02-27 10:59 | Discharge Summary ---
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 fitter use Chronic kidney disease stage: stage 3 (moderate) Qualified Code(s) : E11.22 - Type 2 diabetes mellitus with diabetic chronic kidney disease; N18.3 - Chronic kidney disease, stage 3 (moderate); Z79.4 - [facility] (current) use of insulin (2) Chronic renal insufficiency, stage III (moderate) Priority: Secondary Status: Chronic (3) Hyperkalemia Priority: Secondary Status: Acute (4) Weakness Priority: Secondary Status: Chronic (5) Anemia Priority: Secondary Status: Acute Qualifiers: Anemia type: unspecified type Qualified Code(s): D64.9 - Anemia, unspecified (6) Hypertension Priority: Secondary Status: Chronic Qualifiers: Hypertension type: essential hypertension Qualified Code(s): I10 - Essential (primary) hypertension - Discharge Medications Prescriptions: Ascorbic Acid [Vitamin C] 500 mg PO DAILY@0630 #30 tab Ferrous Sulfate 325 mg PO DAILY@0630 #30 tab Metoprolol XL (24 HR) Succ [Toprol XL] 25 mg PO DAILY #30 tab.er.24h Home Medications: Citalopram Hydrobromide [Celexa] 20 mg PO DAILY 05/15/15 [History] Aspirin [Adult Low Dose Aspirin EC] 81 mg PO QAM 08/09/15 [History] Atorvastatin [Lipitor] 10 mg PO HS 08/09/15 [History] Levothyroxine [Synthroid] 25 mcg PO QAM 08/09/15 [History] Carbidopa/Levodopa [Carbidopa-Levodopa 25-100 Tab] 1 each PO TID 02/05/17 [ History] Cranberry Conc/C/Bacill Coag [Azo Cranberry Tablet] 1 each PO DAILY 02/05/17 [ History] Fenofibrate Nanocrystallized [Tricor] 48 mg PO DAILY 02/05/17 [History] Oxygen 2 l NS HS 02/05/17 [History] SitaGLIPtin [Januvia] 100 mg PO DAILY 02/05/17 [History] Channing/Poly/Luanne OINT [Triple Antibiotic Ointment] 1 appl TP QID #1 tube 02/06/17 [ Rx] Insulin ASPART [NovoLOG] 0 unit SQ TIDWM 02/22/17 [History] Ascorbic Acid [Vitamin C] 500 mg PO DAILY@0630 #30 tab 02/27/17 [Rx] Ferrous Sulfate 325 mg PO DAILY@0630 #30 tab 02/27/17 [Rx] Insulin Glargine,Hum.rec.anlog [Lantus Solostar] 25 unit SQ HS #0 02/27/17 [Rx] Metoprolol XL (24 HR) Succ [Toprol XL] 25 mg PO DAILY #30 tab.er.24h 02/27/17 [ Rx] Allergies/Adverse Reactions: Allergies codeine Allergy (Verified 02/05/17 17:07) Rash Date of admission: 02/24/17 16:00 Primary care physician: Cesar Ferris MD - Patient Status Disposition: Home Health Service Condition: Good Functional capacity at discharge: uses cane/walker Overall status at discharge: patient is progressing back to baseline - Discharge Instructions Follow Up With: Cesar Ferris MD [Primary Care Provider] - 1 week - Diet and Activity Activity: resume usual activities as tolerated Diet: diabetic diet Hospital course: Ms. Chen is a 81 year old female who came to emergency room after she was found to have blood sugar over 500 mg % at home. She had been instructed by her PCP Dr. Ferris at a office visit the previous day to come to emergency room if blood sugar misty above 300 mg %. She was evaluated in the emergency room and admitted to [facility] for ongoing care needs. Initial orders were written by the emergency room physician. I saw her February 23 and performed a history and physical. Her Levemir/Lantus was gradually increased to 25 units daily. Januvia was continued. Accu-Cheks with SSI were done and showed significantly improved control. She will remain on higher dose Lantus at discharge of 25 units. Hemoglobin A1c was elevated at 11.9%. Anemia testing showed iron 31, transferrin saturation 11%, transferrin 194, ferritin 87, B12 404, and folate 7.2. She was started on ferrous sulfate with vitamin C during hospitalization and will continue after discharge. Her potassium level remained slightly elevated during hospitalization. Aldactazide was discontinued and she will remain off this at home. Toprol-XL be given for blood pressure control. On admission the daughter felt the patient should go to a SNF at discharge. The patient did not want this and wished to return home. I explained to the patient and daughter that by having a 3 midnight qualifying stay in the hospital the option of SNF is available for 30 days after discharge. Home health services will be ordered. - Time Spent with Patient Total time spent providing and/or coordinating discharge services: - Constitutional Vitals: Temp Pulse Resp BP Pulse Ox 98.4 F 91 18 141/69 95 02/27/17 06:12 02/27/17 06:12 02/27/17 06:12 02/27/17 06:12 02/27/17 06:12 - VTE Reasons for not Prescribing Prophylaxis: Treatment not Indicated - Low risk for VTE
--- NOTE | 2017-02-27 11:11 | Physician Discharge Referral ---
Home Health/Hosp Referral Info Transfer to: Home Health Attending Provider: Alfonso Provider in Charge Post Discharge: PCP (Cesar Ferris M.D.) - Diagnosis (1) Diabetes mellitus Priority: Primary Status: Chronic (2) Chronic renal insufficiency, stage III (moderate) Priority: Secondary Status: Chronic (3) Hyperkalemia Priority: Secondary Status: Acute (4) Weakness Priority: Secondary Status: Chronic (5) Anemia Priority: Secondary Status: Acute (6) Hypertension Priority: Secondary Status: Chronic - Respiratory Orders Smoking Cessation: Smoking cessation has been advised. For more information, call the [place] Tobacco Quit Line at 0-267-BNOT-NOW. - Diet/Nutrition Diet/Nutrition Orders: No Concentrated Sweets - Activity Activity Orders: Ambulate - Services Needed Following services are medically necessary services: Nursing, Home Health Aide, Physical Therapy, Occupational Therapy - Transfer Medications Prescriptions: Ascorbic Acid [Vitamin C] 500 mg PO DAILY@0630 #30 tab Ferrous Sulfate 325 mg PO DAILY@0630 #30 tab Metoprolol XL (24 HR) Succ [Toprol XL] 25 mg PO DAILY #30 tab.er.24h Home Medications: Citalopram Hydrobromide [Celexa] 20 mg PO DAILY 05/15/15 [History] Aspirin [Adult Low Dose Aspirin EC] 81 mg PO QAM 08/09/15 [History] Atorvastatin [Lipitor] 10 mg PO HS 08/09/15 [History] Levothyroxine [Synthroid] 25 mcg PO QAM 08/09/15 [History] Carbidopa/Levodopa [Carbidopa-Levodopa 25-100 Tab] 1 each PO TID 02/05/17 [ History] Cranberry Conc/C/Bacill Coag [Azo Cranberry Tablet] 1 each PO DAILY 02/05/17 [ History] Fenofibrate Nanocrystallized [Tricor] 48 mg PO DAILY 02/05/17 [History] Oxygen 2 l NS HS 02/05/17 [History] SitaGLIPtin [Januvia] 100 mg PO DAILY 02/05/17 [History] Channing/Poly/Luanne OINT [Triple Antibiotic Ointment] 1 appl TP QID #1 tube 02/06/17 [ Rx] Insulin ASPART [NovoLOG] 0 unit SQ TIDWM 02/22/17 [History] Ascorbic Acid [Vitamin C] 500 mg PO DAILY@0630 #30 tab 02/27/17 [Rx] Ferrous Sulfate 325 mg PO DAILY@0630 #30 tab 02/27/17 [Rx] Insulin Glargine,Hum.rec.anlog [Lantus Solostar] 25 unit SQ HS #0 02/27/17 [Rx] Metoprolol XL (24 HR) Succ [Toprol XL] 25 mg PO DAILY #30 tab.er.24h 02/27/17 [ Rx] Allergies/Adverse Reactions: Allergies codeine Allergy (Verified 02/05/17 17:07) Rash Certification: Further, I certify that my clinical findings support that this patient is homebound (i.e. absences from home require considerable and taxing effort and are for medical reasons or buddhist services or infrequently or short duration when for other reasons) because: Homebound Reason: Leaving home requires considerable and taxing effort due to condition (Impaired mobility from arthritis and deconditioning) Attestation: My signature below is to certify that this patient is under my care and that I, or nurse practitioner, or a physician's management assistant working with me, has a face-to -face encounter with this patient.
[2017-02-28] MEDS ORDERED: *HR* Enoxaparin 30 MG/0.3 ML SYRINGE SQ SCH (06:00)
[2017-02-28] MEDS ORDERED: *HR* SitaGLIPtin 25 MG TABLET PO SCH (09:00)
== END 2017-02-27 13:16 | disposition home health service (06) | DRG 638 ==
LOC: EMEROOPIK 15:23 → INPPIK 15:23
PROVIDERS: ADMIT Internal Medicine; ATTEND Internal Medicine

== ENCOUNTER 2017-06-12 18:12 | Inpatient (IN) ==
--- NOTE | 2017-06-12 18:23 | Emergency Department Note ---
Disposition Clinical Impression: Colitis Abdominal pain Qualifiers: Abdominal location: left upper quadrant Qualified Code(s): R10.12 - Left upper quadrant pain Disposition: Admitted As Inpatient Condition: Good Referrals: Cesar Ferris MD [Primary Care Provider] - Forms: ED Satisfaction Letter, Work/School Release Abdominal Pain HPI - General Chief Complaint: ED Abdominal Pain Stated Complaint: abdominal pain Time Seen by Provider: 06/12/17 18:23 Source: patient, family, EMS Mode of arrival: EMS Limitations: age Nursing Notes Reviewed: Yes Vital Signs Reviewed: Yes - History of Present Illness HPI Narrative: The patient is brought in by EMS for report of frequent diarrhea and upper abdominal pain. She has had a history per family of recurrent diarrhea with spells one to 2 times per month for a long time. They state she has had evaluations for it without finding cause and she is recommended to take Imodium. Family states she takes "Imodium like candy" and it is not helping she has been having frequent diarrhea toward tense this been worse for the past day or 2. Is described as watery without blood or mucus but with a unusual foul odor. She has been on antibiotics about 10 days ago for a UTI. She has felt abdominal pain which is described as constant and in the upper abdomen. The pain is worse after she passes a diarrheal stool. Her abdominal pain has been present for about 36 hours and has been getting a bit worse. She denies any nausea, vomiting, fevers or chills. She is not having cough, congestion, shortness of breath or chest pain. She denies significant abdominal surgeries beyond a cholecystectomy. When I questioned when she last had any type of stool studies, both the patient and her daughter cannot remember any results from the past. The patient was brought in uneventfully by EMS and she refused an IV to be placed. Pt Subjective Complaint: abdominal pain Onset (ago): day(s) (2) Consistency: constant, Worsening Location: LUQ, epigastric Pain Severity: moderate Quality: cramping, aching Radiation: none Migration to: no migration Improves with: nothing Worsens with: bowel movement Context: recent antibiotic use, history of similar episodes Associated symptoms: Reports: diarrhea. Denies: nausea, vomiting, fever, chills , constipation, dysuria, hematemesis, hematochezia, melena, hematuria, anorexia , syncope Treatments prior to arrival: OTC medications (Imodium) - Related Data Home Medications Medication Instructions Recorded Confirmed Citalopram Hydrobromide [Celexa] 20 mg PO DAILY 05/15/15 06/02/17 Atorvastatin [Lipitor] 10 mg PO HS 08/09/15 06/02/17 Levothyroxine [Synthroid] 25 mcg PO QAM 08/09/15 06/02/17 Carbidopa/Levodopa 1 each PO TID 02/05/17 06/02/17 [Carbidopa-Levodopa 25-100 Tab] Cranberry Conc/C/Bacill Coag [Azo 1 each PO DAILY 02/05/17 06/02/17 Cranberry Tablet] Fenofibrate Nanocrystallized 48 mg PO DAILY 02/05/17 06/02/17 [Tricor] Oxygen 2 l NS HS 02/05/17 06/02/17 SitaGLIPtin [Januvia] 100 mg PO DAILY 02/05/17 06/02/17 Insulin ASPART [NovoLOG] 0 unit SQ TIDWM 02/22/17 06/02/17 Previous Rx's Medication Instructions Recorded Ascorbic Acid [Vitamin C] 500 mg PO DAILY@0630 #30 tab 02/27/17 Ferrous Sulfate 325 mg PO DAILY@0630 #30 tab 02/27/17 Insulin Glargine,Hum.rec.anlog 25 unit SQ HS #0 02/27/17 [Lantus Solostar] Metoprolol XL (24 HR) Succ [Toprol 25 mg PO DAILY #30 tab.er.24h 02/27/17 Xl] Aspirin [Lo-Dose Aspirin EC] 81 mg PO Q48H 365 Days tablet. 06/04/17 Lactobacillus [Culturelle] 1 each PO BID #4 cap.sprink 06/04/17 Sulfamethoxazole/Trimeth DS 1 each PO BID #4 tablet 06/04/17 [Bactrim DS] Allergies Allergy/AdvReac Type Severity Reaction Status Date / Time codeine Allergy Rash Verified 02/05/17 17:07 All systems ED: reviewed and negative except as stated. Abdominal Pain PMH - Past Medical History Medical history: Reports: COPD, CVA, dementia, diabetes, hyperlipidemia, hypertension, renal disease, other Female Surgical History: Reports: cataract, cholecystectomy [employer] OFFIC[employer] history: Reports: no [employer]ER history Psychiatric history: Reports: anxiety, depression - Social History Smoking status: Former smoker Alcohol use: Reports: none Drug use: Reports: none Physical Exam - General Limitations: age General appearance: alert, in no apparent distress - Head Head exam: atraumatic, normocephalic, normal inspection - Eye Eye exam: Present: normal appearance, PERRL, EOMI. Absent: scleral icterus, conjunctival injection - ENT ENT exam: normal exam, normal oropharynx, mucous membranes moist - Neck Neck exam: Present: normal inspection, full ROM, trachea midline - Chest Chest inspection: Present: normal inspection, symmetric chest wall rise - Respiratory Respiratory exam: Present: normal lung sounds bilaterally. Absent: respiratory distress, wheezes, prolonged expiratory phase - Cardiovascular Cardiovascular exam: Present: regular rate, normal rhythm, normal heart sounds. Absent: tachycardia - Abdominal Exam Abdominal exam: Present: soft, normal bowel sounds. Absent: distention, guarding, rebound, rigidity, Castañeda's sign, tenderness at McBurney's Point Abdominal tenderness: Present: LUQ, epigastrium, moderate - Extremities Exam Extremities exam: Present: normal inspection, full ROM, normal capillary refill. Absent: tenderness, pedal edema - Expanded Lower Extremity Exam Neurovascular/Tendon exam: Present: normal capillary refill. Absent: motor deficit, sensory deficit, tendon deficit Gait: not tested/not observed - Back Exam Back exam: Present: normal inspection, full ROM. Absent: tenderness, CVA tenderness (R), CVA tenderness (L) - Neurological Exam Neurological exam: Present: alert, oriented X3 - Psychiatric Psychiatric exam: Present: normal affect, normal mood. Absent: agitated, anxious - Skin Skin exam: Present: warm, dry, intact, normal color. Absent: cyanosis, diaphoresis, pallor Course Course Narrative: 191: Given the patient's leukocytosis, abdominal pain and diarrhea I discussed care with the patient, family and Dr. Hamilton. IV has been established and she is started on Flagyl, Cipro and IV fluids. Verbal orders were obtained for her admission. Vital Signs Temperature 99.3 F 06/12/17 18:15 Pulse Rate 77 06/12/17 18:15 Respiratory Rate 14 06/12/17 18:15 Blood Pressure 137/71 06/12/17 18:15 O2 Sat by Pulse Oximetry 96 06/12/17 18:15 Temperature 99.3 F 06/12/17 18:15 Pulse Rate 77 11/13/17 19:17 Respiratory Rate 14 06/12/17 19:17 Blood Pressure 155/62 06/12/17 19:17 O2 Sat by Pulse Oximetry 95 06/12/17 19:17 Oxygen Delivery Oxygen Delivery Room Air Abdominal Pain - Differential Diagnosis Differential Diagnosis: Likely: abdominal pain non-specific, constipation, diverticulitis, small bowel obstruction - Medical Records Medical records reviewed: Yes I reviewed the patient's medical records. Patient did have a urine positive for Escherichia coli on June 02. She has had heparin tightness serology negative April 2015. I cannot find any results from any stool studies. CT/CT abd pelvis wo no iv no oral IMPRESSION: 1. Liquid stool in the colon suggestive of diarrhea. This could be related to enteritis given some fluid distention of some small bowel loops. 2. Minimal bronchial wall thickening, potentially related to pulmonary vascular congestion or bronchitis. 3. Mild cardiomegaly with moderate coronary atherosclerotic calcifications. 4. Mild pulmonary artery dilation, a finding that can be seen with pulmonary hypertension. 5. Patchy mosaic attenuation in the lungs most prominent near the britney, potentially related to pulmonary edema, small vessels disease, or small airways disease. 6. Small sliding hiatal hernia. D/ / Earnest Lechuga MD / Earnest Lechuga MD - Lab Data Lab results reviewed: Yes I reviewed the patient's lab results. Result diagrams: 06/12/17 18:50 06/12/17 18:50 Lab Results 06/12/17 06/12/17 06/12/17 Range/Units 18:50 18:50 18:50 WBC 18.3 H (4.3-11.1) K/mcL RBC 4.38 (3.82-4.97) M/mcL Hgb 11.2 L (11.5-15.4) g/dL Hct 36.3 (35.3-44.9) % MCV 82.9 L (83.0-100.0) fL MCH 25.6 L (28.0-33.3) pg MCHC 30.9 L (31.6-35.5) g/dL RDW 13.7 (11.5-14.5) % Plt Count 268 (140-400) K/mcL MPV 11.8 (9.4-12.4) fL Immature Gran % 0.6 (0-4) % Seg Neutrophils % 86.6 % Lymphocytes % 7.9 % Monocytes % 3.3 % Eosinophils % 1.3 % Basophils % 0.3 % Neutrophils # 15.9 H (1.6-8.9) K/mcL Lymphocytes # 1.5 (0.6-4.6) K/mcL Monocytes # 0.6 (0.0-1.3) K/mcL Eosinophils # 0.2 (0.0-0.6) K/mcL Basophils # 0.1 (0.0-0.2) K/mcL Sodium 138 (136-145) mEq/L Potassium 3.6 (3.5-4.5) mEq/L Chloride 102 (98-109) mEq/L Carbon Dioxide 28 (19-29) mEq/L BUN 32 H (7-20) mg/dL Creatinine 1.19 H (0.57-1.11) mg/dL Est GFR ( Amer) 53 L (> 60) Est GFR (Non-Af Amer) 43 L (> 60) BUN/Creatinine Ratio 27 H (6-26) Glucose 63 L (70-99) mg/dL Calculated Osmolality 291 (280-300) Lactic Acid 0.8 (0.5-2.2) mmol/L Calcium 9.1 (8.6-10.8) mg/dL Total Bilirubin 0.3 (0.2-1.2) mg/dL Direct Bilirubin 0.1 (0.0-0.5) mg/dL Indirect Bilirubin 0.2 (0.0-1.2) mg/dL AST 14 (5-34) Units/L ALT < 6 (0-55) Units/L Alkaline Phosphatase 53 (38-126) Units/L Serum Total Protein 6.3 (6.0-8.3) g/dL Albumin 3.0 L (3.5-5.0) g/dL Globulin 3.3 (2.4-3.5) g/dL Albumin/Globulin Ratio 0.9 L (1.1-2.2) Amylase 59 (25-125) Units/L Lipase 16 (8-78) Units/L - Radiology Data Radiology results reviewed: Yes I reviewed the patient's radiology results. CT is performed of the abdomen and pelvis without IV or oral contrast. I do not see infiltrates, effusion, pneumothorax or mass in the base of the visible lung. The liver, spleen and pancreas appear normal. Aorta is without dilatation. Kidneys are without stone or obstruction. Colon his with wall thickening and some air-fluid levels consistent with enteritis. I do not see evidence for bowel obstruction or perforation. Abdominal wall appears normal. This is on my interpretation. Impressions Abdomen/Pelvis CT 06/12/17 18:29 IMPRESSION: Air-fluid levels throughout the colon may be seen with diarrheal illness. Small hiatus hernia. D/ / 06/12/2017 19:14:32 Cortez Benavidez / hussein Interpreting Provider: Cortez Benavidez
[2017-06-12 18:57] LABS: Basophils # 0.1 K/mcL (0.0-0.2); Basophils % 0.3 %; Eosinophils # 0.2 K/mcL (0.0-0.6); Eosinophils % 1.3 %; Hematocrit 36.3 % (35.3-44.9); Hemoglobin 11.2 g/dL (11.5-15.4); Immature Granulocytes % 0.6 % (0-4); Lymphocytes # 1.5 K/mcL (0.6-4.6); Lymphocytes % 7.9 %; Mean Corpuscular HGB Conc 30.9 g/dL (31.6-35.5); Mean Corpuscular Hemoglobin 25.6 pg (28.0-33.3); Mean Corpuscular Volume 82.9 fL (83.0-100.0); Mean Platelet Volume 11.8 fL (9.4-12.4); Monocytes # 0.6 K/mcL (0.0-1.3); Monocytes % 3.3 %; Neutrophils # 15.9 K/mcL (1.6-8.9); Platelet Count 268 K/mcL (140-400); Red Blood Count 4.38 M/mcL (3.82-4.97); Red Cell Distribution Width 13.7 % (11.5-14.5); Segmented Neutrophils % 86.6 %
[2017-06-12 19:14] LABS: Alanine Aminotransferase < 6 Units/L (0-55); Albumin/Globulin Ratio 0.9 (1.1-2.2); Alkaline Phosphatase 53 Units/L (38-126); Amylase 59 Units/L (25-125); Aspartate Amino Transferase 14 Units/L (5-34); BUN/Creatinine Ratio 27 (6-26); Bilirubin,Direct 0.1 mg/dL (0.0-0.5); Bilirubin,Indirect 0.2 mg/dL (0.0-1.2); Bilirubin,Total 0.3 mg/dL (0.2-1.2); Blood Urea Nitrogen 32 mg/dL (7-20); Calcium 9.1 mg/dL (8.6-10.8); Carbon Dioxide 28 mEq/L (19-29); Chloride 102 mEq/L (98-109); Globulin 3.3 g/dL (2.4-3.5); Glucose 63 mg/dL (70-99); Lipase 16 Units/L (8-78); Osmolality,Calculated 291 (280-300); Potassium 3.6 mEq/L (3.5-4.5); Sodium 138 mEq/L (136-145); Total Protein 6.3 g/dL (6.0-8.3); eGFR For African Americans 53 (> 60); eGFR For Non-African Americans 43 (> 60)
[2017-06-12] MEDS ORDERED: 0.9 % Sodium Chloride 1,000 ML IVC SCH (19:15)
[2017-06-12] MEDS ORDERED: MetroNIDAZOLE 500 MG/100 ML 500 MG/100 ML BAG IVPB ONE (19:19)
[2017-06-12] MEDS ORDERED: Acetaminophen 325 MG TABLET PO PRN (20:10)
[2017-06-12] MEDS ORDERED: D5% in Water 1,000 ML IVC PRN (20:10)
[2017-06-12] MEDS ORDERED: Dextrose Gel 15 GM PO PRN ×2 (20:10)
[2017-06-12] MEDS ORDERED: Ondansetron 4 MG/2 ML VIAL IVP PRN (20:10)
[2017-06-12] MEDS ORDERED: *HR* Dextrose 50 % in Water (Syg) 50 ML SYRINGE IVP PRN (20:10)
[2017-06-12] MEDS ORDERED: *HR* HYDROmorphone (PF) 1 MG/ML SYRINGE IVP PRN (20:10)
[2017-06-12] MEDS ORDERED: Naloxone 0.4 MG/ML INJ IVP PRN (20:10)
[2017-06-12] MEDS: MetroNIDAZOLE 500 MG/100 ML 500 MG/100 ML BAG IVPB ONE (21:47)
[2017-06-12] MEDS: 0.9 % Sodium Chloride 1,000 ML IVC SCH (21:49)
[2017-06-12] MEDS ORDERED: metroNIDAZOLE 500 MG TABLET PO ONE (22:26)
[2017-06-12 22:33] LABS: Adenovirus F 40/41 PCR Not detected (Not detect); Astrovirus PCR Not detected (Not detect); C.difficile Toxin A/B by PCR See reflex test (Not detect); Campylobacter by PCR Not detected (Not detect); Cryptosporidium by PCR Not detected (Not detect); Cyclospora cayetanensis PCR Not detected (Not detect); E. coli O157 by PCR Not detected (Not detect); Entamoeba histolytica PCR Not detected (Not detect); Enteroaggregative E.coli(EAEC) Not detected (Not detect); Enteropathogenic E.coli(EPEC) Not detected (Not detect); Enterotoxigenic E.coli (ETEC) Not detected (Not detect); Giardia lamblia PCR Not detected (Not detect); Norovirus GI/GII PCR Not detected (Not detect); Plesiomonas shigelloides PCR Not detected (Not detect); Rotavirus A PCR Not detected (Not detect); Salmonella PCR Not detected (Not detect); Sapovirus PCR Not detected (Not detect); Shig/EnteroinvasiveE coli EIEC Not detected (Not detect); Shigalike tox-prod E coli STEC Not detected (Not detect); Vibrio PCR Not detected (Not detect); Vibrio cholerae PCR Not detected (Not detect); Yersinia enterocolitica PCR Not detected (Not detect)
[2017-06-13] MEDS: Vancomycin Oral Soln 250 MG/5 ML UDC PO SCH ×4 (00:56→22:36)
[2017-06-13] MEDS: 0.9 % Sodium Chloride 1,000 ML IVC SCH (05:43)
[2017-06-13] MEDS ORDERED: Vancomycin Oral Soln 250 MG/5 ML UDC PO SCH ×2 (08:15→12:00)
--- NOTE | 2017-06-13 12:17 | Internal Med History&Physical ---
Date of Encounter: 06/13/17 Time of Encounter: 11:50 Assessment and Plan (1) C. difficile colitis Current visit: Yes Status: Acute She has been started on oral vancomycin. Lactobacillus will be added. Further workup will be done as needed. (2) Diabetes mellitus Current visit: No Status: Chronic Hemoglobin A1c was 7.3% on 06/04/2017. We will hold basal insulin and do Accu- Cheks with SSRI. Qualifiers: Diabetes mellitus type: type 2 Diabetes mellitus complication detail: with chronic kidney disease Diabetes mellitus snf insulin use: with terminal system operator use Chronic kidney disease stage: stage 3 (moderate) Qualified Code(s) : E11.22 - Type 2 diabetes mellitus with diabetic chronic kidney disease; N18.3 - Chronic kidney disease, stage 3 (moderate); Z79.4 - MCFP (current) use of insulin (3) Hypertension Current visit: No Status: Chronic We will hold Toprol-XL since blood pressure is borderline low. Qualifiers: Hypertension type: essential hypertension Qualified Code(s): I10 - Essential (primary) hypertension (4) Chronic renal insufficiency, stage III (moderate) Current visit: No Status: Chronic Will monitor renal indices periodically. (5) Anemia Current visit: No Status: Acute Continue ferrous sulfate with vitamin C. Qualifiers: Anemia type: unspecified type Qualified Code(s): D64.9 - Anemia, unspecified Internal Medicine - H&P: HPI Chief complaint: Diarrhea Admitted From: Home Plans for Post Hospital Care: Home History of present illness: Ms. Chen is a 82 year old female who came to emergency room stating she had onset of diarrhea and crampy abdominal pain approximately June 09. She denies any vomiting. There was no melena or hematochezia. She took numerous Imodium pills at home without significant relief. She was brought to emergency room and evaluated and found to have C. difficile colitis. She was admitted to [facility] floor for ongoing care needs. She was discharged from [facility] 06/04/2017 after admission for diagnoses of UTI. She received a dose of Rocephin in the emergency room but was changed to Septra DS which she continued for 2 days after discharge along with lactobacillus. Her daughter reports that she had some diarrhea prior to the May for admission but it was very transient and not severe. She has had cholecystectomy remotely. There is no known disorder of liver or exocrine pancreas. Past Med Surg Social Fam HX - Past Medical History Medical history: COPD, CVA, dementia, diabetes, hyperlipidemia, hypertension, renal disease, other Psychiatric history: anxiety, depression - Past Surgical History Surgical History: cholecystectomy - Social History Smoking Status: Former smoker Smokeless Tobacco Status: No Alcohol use: none Drug use: none - Family History Father Family Member Ethnicity: Non- Living Status: Hx Family Cancer: Yes (Head) Brother Family Member Ethnicity: Non- Living Status: Hx Family Cancer: Yes (Throat, Lung) Hx Family Endocrine Disorder: Yes (DM) Sister Family Member Ethnicity: Non- Living Status: Still Living Hx Family Cancer: Yes (Breast CA, double mastectomy) Hx Family Endocrine Disorder: Yes (DM) Mother Family Member Ethnicity: Non- Living Status: Hx Family Cardiac Disorders: No Hx Family Respiratory Disorders: No Hx Family Cancer: No Hx Family GI Disorders: No Hx Family Endocrine Disorder: Yes (DM) Hx Family Neuromuscular Disorders: No Hx Family Neurologic Disorders: No Hx Family HEENT Disorders: No Hx Family Autoimmune Disorders: No Internal Medicine - H&P: Meds Citalopram Hydrobromide [Celexa] 20 mg PO DAILY 05/15/15 [History] Atorvastatin [Lipitor] 10 mg PO HS 08/09/15 [History] Levothyroxine [Synthroid] 25 mcg PO QAM 08/09/15 [History] Carbidopa/Levodopa [Carbidopa-Levodopa 25-100 Tab] 1 each PO TID 02/05/17 [ History] Cranberry Conc/C/Bacill Coag [Azo Cranberry Tablet] 1 each PO DAILY PRN [History] Fenofibrate Nanocrystallized [Tricor] 48 mg PO DAILY 02/05/17 [History] Oxygen 2 l NS HS PRN 02/05/17 [History] Insulin ASPART [NovoLOG] 0 unit SQ TIDWM 02/22/17 [History] Metoprolol XL (24 HR) Succ [Toprol Xl] 25 mg PO DAILY #30 tab.er.24h 02/27/17 [ Rx] Aspirin [Lo-Dose Aspirin EC] 81 mg PO Q48H 365 Days tablet. 06/04/17 [Rx] Basaglar Evelynikpen U-100 22 units SQ HS 06/13/17 [History] Multivit with Iron-Minerals [Compete] 1 each PO DAILY 06/13/17 [History] 3 Allergy/AdvReac Type Severity Reaction Status Date / Time codeine Allergy Rash Verified 06/12/17 20:01 All Systems PM: A 10-system review of systems was performed and is negative for pertinent findings except as documented above in the HPI. Review of systems: Review of systems from her June 16 [facility] history and physical were reviewed and revised as below. Gen.: Her weight increased from 76.657 kg at the June 2014 hospitalization to 82.724 kg on admission now. Cardiovascular: She has history of hypertension but denies ND heart failure angina DVT or pulmonary embolus. She had stress test approximately 02/2014 which was negative per her report Respiratory: She smoked from age [age] up to 3 packs per day. She has not had PFTs. She states she wears oxygen at home at bedtime. GI: As per history of present illness : She has CKD stage III and has seen a manager endoscopy in the past with most recent visit approximately 2014. She denies other kidney or bladder disorders Neurologic: She claims she had a stroke in 1998 without significant permanent neurologic deficit. She denies other large distribution strokes or seizures. She has been diagnosed with early dementia and Parkinson's disease. Endocrine: She was diagnosed with DM 2 approximately 1983. She has hyperlipidemia and hypothyroidism Hematology/oncology: She has anemia with workup 06/04/2017 showing iron 25, transferrin saturation 9%, transferrin 189, ferritin 53, B12 417, and folate 10.6. Aspirin dose was decreased to 81 mg every other day at discharge last week. She was prescribed ferrous sulfate with vitamin C. She has had thrombocytopenia in the past that normalized after a course of oral steroids Psychiatric: She has depression but denies anxiety or other mental health issues Musk skeletal: She has arthritis but denies gout, osteoporosis, or other bone joint or muscle disorders. - Constitutional Vitals: Temp Pulse Resp BP Pulse Ox 97.8 F 81 16 117/62 97 06/13/17 10:48 06/13/17 10:48 06/13/17 10:48 06/13/17 10:48 06/13/17 10:48 Exam: Gen.: She is a well-developed well-nourished female lying quietly in bed who appears in no severe distress at present time HEENT: Head is atraumatic and normocephalic. Eyes: EOMI. There is no scleral icterus. Mouth: Mucosa is moist. Neck: Supple and nontender. There is no thyromegaly or adenopathy noted. Heart: Regular without murmurs gallops or ectopics. Lungs: No wheezes or crackles are heard. Abdomen: Bowel sounds are present. There is mild tenderness to light palpation diffusely. Extremities: There is no cyanosis edema or clubbing noted. Dorsalis pedis and posterior tibial pulses are trace to 1+ palpable bilaterally. Neurologic: Mental status: She is able to answer a few questions but is hard of hearing. Cranial nerves: Smile is symmetric. Forehead wrinkles bilaterally. Tongue protrudes midline. EOMI. Motor: There is no pronator drift. Cerebellar : Finger to nose is intact bilaterally. Skin: Warm and dry Internal Med - H&P Results - Labs CBC & Chem 7: 06/12/17 18:50 06/12/17 18:50
[2017-06-13] MEDS ORDERED: Ondansetron 4 MG/2 ML VIAL IVP PRN (12:29)
[2017-06-13] MEDS: 0.45 % Sodium Chloride w/KCl 20 MEQ/1,000 ML MLS IVC SCH (13:22)
[2017-06-13] MEDS: Insulin LISPRO 300 UNITS/3 ML VIAL SQ SCH ×2 (13:24→18:26)
[2017-06-13] MEDS: MetroNIDAZOLE 500 MG/100 ML 500 MG/100 ML BAG IVPB ONE (13:34)
[2017-06-13] MEDS ORDERED: MetroNIDAZOLE 500 MG/100 ML 500 MG/100 ML BAG IVPB SCH (19:13)
[2017-06-13] MEDS: Lactobacillus 1 EACH CAP.SPRINK PO SCH (22:36)
[2017-06-14] MEDS: 0.45 % Sodium Chloride w/KCl 20 MEQ/1,000 ML MLS IVC SCH ×2 (03:52→15:27)
[2017-06-14 05:28] LABS: Basophils # 0.1 K/mcL (0.0-0.2); Basophils % 0.3 %; Eosinophils # 0.5 K/mcL (0.0-0.6); Eosinophils % 2.6 %; Hematocrit 32.7 % (35.3-44.9); Hemoglobin 10.1 g/dL (11.5-15.4); Immature Granulocytes % 0.7 % (0-4); Lymphocytes # 1.5 K/mcL (0.6-4.6); Mean Corpuscular HGB Conc 30.9 g/dL (31.6-35.5); Mean Corpuscular Hemoglobin 25.9 pg (28.0-33.3); Mean Corpuscular Volume 83.8 fL (83.0-100.0); Mean Platelet Volume 12.6 fL (9.4-12.4); Monocytes # 0.6 K/mcL (0.0-1.3); Monocytes % 3.3 %; Neutrophils # 15.5 K/mcL (1.6-8.9); Platelet Count 224 K/mcL (140-400); Segmented Neutrophils % 85.1 %
[2017-06-14 05:55] LABS: Calcium 8.2 mg/dL (8.6-10.8); Magnesium 1.5 mg/dL (1.6-2.6); Phosphorous 2.5 mg/dL (2.3-4.7); Potassium 3.9 mEq/L (3.5-4.5)
[2017-06-14] MEDS: Ascorbic Acid 500 MG TABLET PO SCH (06:22)
[2017-06-14] MEDS: *HR* Enoxaparin 40 MG/0.4 ML SYRINGE SQ SCH (06:22)
[2017-06-14] MEDS: Vancomycin Oral Soln 250 MG/5 ML UDC PO SCH ×3 (06:22→18:41)
[2017-06-14] MEDS: Insulin LISPRO 300 UNITS/3 ML VIAL SQ SCH ×3 (08:11→16:47)
[2017-06-14] MEDS: Lactobacillus 1 EACH CAP.SPRINK PO SCH ×2 (08:11→22:12)
--- NOTE | 2017-06-14 11:01 | Internal Med Progress Note ---
Date of Encounter: 06/14/17 Time of Encounter: 10:55 - Assessment and plan (1) C. difficile colitis Current Visit: Yes Status: Acute Assessment and plan: June 14. Continue oral vancomycin with lactobacillus. Recheck labs in a.m. (2) Diabetes mellitus Current Visit: No Status: Chronic Assessment and plan: June 14. Hemoglobin A1c was 7.3% on 06/04/2017. Continue Accu-Cheks with SSI and hold basal insulin. Qualifiers: Diabetes mellitus type: type 2 Diabetes mellitus complication detail: with chronic kidney disease Diabetes mellitus mcc insulin use: with intermodal customer service use Chronic kidney disease stage: stage 3 (moderate) Qualified Code(s) : E11.22 - Type 2 diabetes mellitus with diabetic chronic kidney disease; N18.3 - Chronic kidney disease, stage 3 (moderate); Z79.4 - halfway (current) use of insulin (3) Hypertension Current Visit: No Status: Chronic Assessment and plan: June 14. Blood pressure stable off medication. Continue to hold Toprol-XL. Qualifiers: Hypertension type: essential hypertension Qualified Code(s): I10 - Essential (primary) hypertension (4) Chronic renal insufficiency, stage III (moderate) Current Visit: No Status: Chronic Assessment and plan: June 14. Will monitor renal indices. (5) Anemia Current Visit: No Status: Acute Assessment and plan: June 14. Continue ferrous sulfate with vitamin C. Qualifiers: Anemia type: unspecified type Qualified Code(s): D64.9 - Anemia, unspecified - Subjective Interval history: June 14. She has no new complaints. She states she still has diarrhea. - Constitutional Vitals: Temp Pulse Resp BP Pulse Ox 98.1 F 80 18 130/56 96 06/14/17 07:01 06/14/17 07:01 06/14/17 07:01 06/14/17 07:01 06/14/17 07:01 Exam: She is resting comfortably in bed and appears in no acute distress. Her affect is cheerful. I reviewed her medications and lab results. Internal Medicine: Result - Labs CBC & Chem 7: 06/14/17 04:44 06/14/17 04:44 Labs: Short CBC 06/14/17 Range/Units 04:44 WBC 18.2 H (4.3-11.1) K/mcL Hgb 10.1 L (11.5-15.4) g/dL Hct 32.7 L (35.3-44.9) % Plt Count 224 (140-400) K/mcL Neutrophils # 15.5 H (1.6-8.9) K/mcL BMP 06/14/17 04:44 Sodium 137 Potassium 3.9 Chloride 104 Carbon Dioxide 24 BUN 24 H Creatinine 1.19 H Glucose 176 H Calcium 8.2 L Consult Discharge Plan - Plan Referrals: Cesar Ferris MD [Primary Care Provider] - 1 week
[2017-06-14] MEDS: Magnesium Oxide 400 MG TABLET PO SCH (11:25)
[2017-06-14] MEDS: Fenofibrate 54 MG TABLET PO SCH (11:26)
[2017-06-14] MEDS: Carbidopa/Levodopa 25/100 TABLET PO SCH ×3 (11:26→22:12)
[2017-06-14] MEDS: *HR* HYDROmorphone (PF) 1 MG/ML SYRINGE IVP PRN (22:21)
[2017-06-15] MEDS: Vancomycin Oral Soln 250 MG/5 ML UDC PO SCH ×4 (01:09→18:15)
[2017-06-15] MEDS: 0.45 % Sodium Chloride w/KCl 20 MEQ/1,000 ML MLS IVC SCH ×2 (04:57→18:14)
[2017-06-15] MEDS: *HR* HYDROmorphone (PF) 1 MG/ML SYRINGE IVP PRN (05:07)
[2017-06-15 06:06] LABS: Basophils % 0.3 %; Eosinophils # 0.6 K/mcL (0.0-0.6); Eosinophils % 4.9 %; Hematocrit 30.1 % (35.3-44.9); Hemoglobin 9.2 g/dL (11.5-15.4); Immature Granulocytes % 0.5 % (0-4); Lymphocytes # 1.3 K/mcL (0.6-4.6); Lymphocytes % 10.7 %; Mean Corpuscular HGB Conc 30.6 g/dL (31.6-35.5); Mean Corpuscular Hemoglobin 25.8 pg (28.0-33.3); Mean Corpuscular Volume 84.3 fL (83.0-100.0); Mean Platelet Volume 12.8 fL (9.4-12.4); Monocytes # 0.5 K/mcL (0.0-1.3); Monocytes % 3.8 %; Neutrophils # 9.6 K/mcL (1.6-8.9); Platelet Count 225 K/mcL (140-400); Red Blood Count 3.57 M/mcL (3.82-4.97); Red Cell Distribution Width 13.9 % (11.5-14.5); Segmented Neutrophils % 79.8 %
[2017-06-15 06:24] LABS: Calcium 7.9 mg/dL (8.6-10.8); Potassium 3.7 mEq/L (3.5-4.5)
[2017-06-15] MEDS: Levothyroxine 25 MCG TABLET PO SCH (06:50)
[2017-06-15] MEDS: Ascorbic Acid 500 MG TABLET PO SCH (06:50)
[2017-06-15] MEDS: *HR* Enoxaparin 40 MG/0.4 ML SYRINGE SQ SCH (06:51)
[2017-06-15] MEDS: Insulin LISPRO 300 UNITS/3 ML VIAL SQ SCH ×3 (07:42→16:30)
[2017-06-15] MEDS: Lactobacillus 1 EACH CAP.SPRINK PO SCH ×2 (09:46→21:08)
[2017-06-15] MEDS: Fenofibrate 54 MG TABLET PO SCH (09:46)
[2017-06-15] MEDS: Magnesium Oxide 400 MG TABLET PO SCH (09:46)
[2017-06-15] MEDS: Carbidopa/Levodopa 25/100 TABLET PO SCH ×3 (09:47→21:08)
--- NOTE | 2017-06-15 19:07 | Internal Med Progress Note ---
Date of Encounter: 06/15/17 Time of Encounter: 19:00 - Assessment and plan (1) C. difficile colitis Current Visit: Yes Status: Acute Assessment and plan: June 14. Continue oral vancomycin with lactobacillus. Recheck labs in a.m. (2) Diabetes mellitus Current Visit: No Status: Chronic Assessment and plan: June 14. Hemoglobin A1c was 7.3% on 06/04/2017. Continue Accu-Cheks with SSI and hold basal insulin. June 15. Blood sugars have risen. We will start back low-dose basal insulin and continue to monitor Accu-Cheks with SSI. Qualifiers: Diabetes mellitus type: type 2 Diabetes mellitus complication detail: with chronic kidney disease Diabetes mellitus chairman & chief executive officer insulin use: with chairman & chief executive officer use Chronic kidney disease stage: stage 3 (moderate) Qualified Code(s) : E11.22 - Type 2 diabetes mellitus with diabetic chronic kidney disease; N18.3 - Chronic kidney disease, stage 3 (moderate); Z79.4 - phone technician (current) use of insulin (3) Hypertension Current Visit: No Status: Chronic Assessment and plan: June 14. Blood pressure stable off medication. Continue to hold Toprol-XL. Qualifiers: Hypertension type: essential hypertension Qualified Code(s): I10 - Essential (primary) hypertension (4) Chronic renal insufficiency, stage III (moderate) Current Visit: No Status: Chronic Assessment and plan: June 14. Will monitor renal indices. June 15. Azotemia improved. Continue present (5) Anemia Current Visit: No Status: Acute Assessment and plan: June 14. Continue ferrous sulfate with vitamin C. No murmur . Hemoglobin has decreased to 9.2. Will recheck labs in a.m. Continue ferrous sulfate with vitamin C. Qualifiers: Anemia type: unspecified type Qualified Code(s): D64.9 - Anemia, unspecified - Subjective Interval history: June 14. She has no new complaints. She states she still has diarrhea. June 15. She has no new complaints and states she feels better. She states she is having black tarry stools - Constitutional Vitals: Temp Pulse Resp BP Pulse Ox 98.2 F 81 18 138/54 96 06/15/17 15:00 06/15/17 15:00 06/15/17 15:00 06/15/17 15:00 06/15/17 15:00 Exam: She is resting comfortably in bed and appears in no acute distress. She reports minimal abdominal discomfort. Her affect is bright and cheerful. I reviewed her medications and lab results. Internal Medicine: Result - Labs CBC & Chem 7: 06/15/17 04:45 06/15/17 04:45 Labs: Short CBC 06/15/17 Range/Units 04:45 WBC 12.0 H (4.3-11.1) K/mcL Hgb 9.2 L (11.5-15.4) g/dL Hct 30.1 L (35.3-44.9) % Plt Count 225 (140-400) K/mcL Neutrophils # 9.6 H (1.6-8.9) K/mcL BMP 06/15/17 04:45 Sodium 139 Potassium 3.7 Chloride 106 Carbon Dioxide 24 BUN 20 Creatinine 1.11 Glucose 223 H Calcium 7.9 L - VTE Documentation of Mechanical Device: Graduated compression elastic hosiery Consult Discharge Plan - Plan Referrals: Cesar Ferris MD [Primary Care Provider] - 1 week
[2017-06-15] MEDS ORDERED: 0.45 % Sodium Chloride w/KCl 20 MEQ/1,000 ML MLS IVC SCH (19:09)
[2017-06-16] MEDS: Vancomycin Oral Soln 250 MG/5 ML UDC PO SCH ×3 (00:35→13:22)
[2017-06-16 05:25] LABS: Basophils % 0.5 %; Eosinophils # 0.7 K/mcL (0.0-0.6); Eosinophils % 7.7 %; Hematocrit 31.4 % (35.3-44.9); Hemoglobin 9.6 g/dL (11.5-15.4); Immature Granulocytes % 0.8 % (0-4); Lymphocytes # 1.3 K/mcL (0.6-4.6); Lymphocytes % 14.8 %; Mean Corpuscular HGB Conc 30.6 g/dL (31.6-35.5); Mean Corpuscular Hemoglobin 25.5 pg (28.0-33.3); Mean Corpuscular Volume 83.3 fL (83.0-100.0); Mean Platelet Volume 12.4 fL (9.4-12.4); Monocytes # 0.4 K/mcL (0.0-1.3); Monocytes % 4.6 %; Neutrophils # 6.3 K/mcL (1.6-8.9); Platelet Count 238 K/mcL (140-400); Red Blood Count 3.77 M/mcL (3.82-4.97); Red Cell Distribution Width 13.8 % (11.5-14.5); Segmented Neutrophils % 71.6 %
[2017-06-16 05:41] LABS: BUN/Creatinine Ratio 17 (6-26); Blood Urea Nitrogen 15 mg/dL (7-20); Calcium 8.2 mg/dL (8.6-10.8); Carbon Dioxide 25 mEq/L (19-29); Chloride 106 mEq/L (98-109); Glucose 186 mg/dL (70-99); Magnesium 1.4 mg/dL (1.6-2.6); Osmolality,Calculated 292 (280-300); Potassium 4.1 mEq/L (3.5-4.5); Sodium 138 mEq/L (136-145); eGFR For African Americans > 60 (> 60); eGFR For Non-African Americans 60 (> 60)
[2017-06-16] MEDS: *HR* Enoxaparin 40 MG/0.4 ML SYRINGE SQ SCH (06:06)
[2017-06-16] MEDS: Ascorbic Acid 500 MG TABLET PO SCH (06:06)
[2017-06-16] MEDS: Levothyroxine 25 MCG TABLET PO SCH (06:06)
[2017-06-16 07:07] VITALS: BP 145/64
[2017-06-16] MEDS: Insulin LISPRO 300 UNITS/3 ML VIAL SQ SCH ×2 (08:52→13:21)
[2017-06-16] MEDS: Lactobacillus 1 EACH CAP.SPRINK PO SCH (08:52)
[2017-06-16] MEDS: Fenofibrate 54 MG TABLET PO SCH (08:52)
[2017-06-16] MEDS: Magnesium Oxide 400 MG TABLET PO SCH (08:53)
[2017-06-16] MEDS: Carbidopa/Levodopa 25/100 TABLET PO SCH (08:53)
--- NOTE | 2017-06-16 10:16 | Discharge Summary ---
Date of Encounter: 06/16/17 Time of Encounter: 10:00 - Discharge Diagnosis (1) C. difficile colitis Priority: Primary Status: Acute (2) Diabetes mellitus Priority: Secondary Status: Chronic Qualifiers: Diabetes mellitus type: type 2 Diabetes mellitus complication detail: with chronic kidney disease Diabetes mellitus termite control technician insulin use: with fpc use Chronic kidney disease stage: stage 3 (moderate) Qualified Code(s) : E11.22 - Type 2 diabetes mellitus with diabetic chronic kidney disease; N18.3 - Chronic kidney disease, stage 3 (moderate); Z79.4 - care home (current) use of insulin (3) Hypertension Priority: Secondary Status: Chronic Qualifiers: Hypertension type: essential hypertension Qualified Code(s): I10 - Essential (primary) hypertension (4) Chronic renal insufficiency, stage III (moderate) Priority: Secondary Status: Chronic (5) Anemia Priority: Secondary Status: Chronic Qualifiers: Anemia type: unspecified type Qualified Code(s): D64.9 - Anemia, unspecified - Discharge Medications Prescriptions: Insulin DETEMIR [Levemir] 10 unit SQ HS 30 Days mls Home Medications: Citalopram Hydrobromide [Celexa] 20 mg PO DAILY 05/15/15 [History] Atorvastatin [Lipitor] 10 mg PO HS 08/09/15 [History] Levothyroxine [Synthroid] 25 mcg PO QAM 08/09/15 [History] Carbidopa/Levodopa [Carbidopa-Levodopa 25-100 Tab] 1 each PO TID 02/05/17 [ History] Cranberry Conc/C/Bacill Coag [Azo Cranberry Tablet] 1 each PO DAILY PRN [History] Fenofibrate Nanocrystallized [Tricor] 48 mg PO DAILY 02/05/17 [History] Oxygen 2 l NS HS PRN 02/05/17 [History] Insulin ASPART [NovoLOG] 0 unit SQ TIDWM 02/22/17 [History] Metoprolol XL (24 HR) Succ [Toprol Xl] 25 mg PO DAILY #30 tab.er.24h 02/27/17 [ Rx] Aspirin [Lo-Dose Aspirin EC] 81 mg PO Q48H 365 Days tablet. 06/04/17 [Rx] Multivit with Iron-Minerals [Compete] 1 each PO DAILY 06/13/17 [History] Acetaminophen [Tylenol] 650 mg PO Q6HR PRN tablet 06/16/17 [Rx] Ascorbic Acid [Vitamin C] 500 mg PO 0630 tablet 06/16/17 [Rx] Enoxaparin [Lovenox] 40 mg SQ 0600 syringe 06/16/17 [Rx] Ferrous Sulfate 325 mg PO 0630 tablet 06/16/17 [Rx] HYDROmorphone (PF) [Dilaudid] 0.5 mg IVP Q4H PRN syringe 06/16/17 [Rx] Insulin DETEMIR [Levemir] 10 unit SQ HS 30 Days mls 06/16/17 [Rx] Lactobacillus [Culturelle] 1 each PO BID cap.sprink 06/16/17 [Rx] Magnesium Oxide [Mag-Ox] 400 mg PO BID tablet 06/16/17 [Rx] Naloxone [Narcan] 0.4 mg IVP Q2MIN PRN inj 06/16/17 [Rx] Vancomycin Oral Soln [Vancocin] 250 mg PO Q6HR udc 06/16/17 [Rx] Allergies/Adverse Reactions: 3 Allergy/AdvReac Type Severity Reaction Status Date / Time codeine Allergy Rash Verified 06/12/17 20:01 Date of admission: 06/13/17 12:31 Primary care physician: Cesar Ferris MD Consults: 06/15/17 10:37 Consult to Occupational Therapy [CONS] Routine Comment: Evaluate, develop and implement POC Reason for Consult: weakness Consult to Physical Therapy [CONS] Routine Comment: Evaluate, develop and implement POC Reason for Consult: weakness - Patient Status Disposition: Transfer Hospital Swing Bed Condition: Good Functional capacity at discharge: uses cane/walker Overall status at discharge: patient is progressing back to baseline - Discharge Instructions - Diet and Activity Activity: as per physical therapy Diet: advance to your usual diet Hospital course: Ms. Chen is a 82 year old female who came to emergency room stating she had onset of diarrhea and crampy abdominal pain approximately June 09. She denies any vomiting. There was no melena or hematochezia. She took numerous Imodium pills at home without significant relief. She was brought to emergency room and evaluated and found to have C. difficile colitis. She was admitted to [facility] for ongoing care needs. Initial orders were written by the emergency room physician. I saw her on June 13 and performed a history and physical. She was started on oral vancomycin with lactobacillus. She had gradual improvement with WBC normalizing to 8.8 with normalization of the differential on the day of discharge into swing bed . Her azotemia improved with creatinine decreasing to 0.90 with estimated GFR rising to 60. Magnesium level returned low at 1.5 and she was started on magnesium oxide which will be continued in swing bed. She had physical therapy and occupational therapy evaluation with ongoing intervention. This will be continued in swing bed. On June 16 she was discharged to swing bed for ongoing therapy needs. - Time Spent with Patient Total time spent providing and/or coordinating discharge services: - Constitutional Vitals: Temp Pulse Resp BP Pulse Ox 97.9 F 79 18 145/64 95 06/16/17 07:02 06/16/17 07:02 06/16/17 07:02 06/16/17 07:02 06/16/17 07:02 - VTE Documentation of Mechanical Device: Graduated compression elastic hosiery
== END 2017-06-16 14:11 | disposition other institution (70) | DRG 373 ==
LOC: INPPIK 18:12 → EMEROOPIK 18:12 → INPPIK 20:05
PROVIDERS: ADMIT Internal Medicine; ATTEND Internal Medicine

== ENCOUNTER 2017-06-16 13:33 | Inpatient (IN) ==
[2017-06-16] MEDS ORDERED: Naloxone 0.4 MG/ML INJ IVP PRN (14:21)
[2017-06-16] MEDS ORDERED: *HR* Dextrose 50 % in Water (Syg) 50 ML SYRINGE IVP PRN (14:28)
[2017-06-16] MEDS ORDERED: Dextrose Gel 15 GM PO PRN ×2 (14:28)
[2017-06-16] MEDS ORDERED: D5% in Water 1,000 ML IVC PRN (14:28)
[2017-06-16] MEDS: Aspirin Enteric Coated 81 MG Tablet PO SCH (16:50)
[2017-06-16] MEDS: Insulin LISPRO 300 UNITS/3 ML VIAL SQ SCH (16:50)
[2017-06-16] MEDS: Vancomycin Oral Soln 250 MG/5 ML UDC PO SCH (17:05)
[2017-06-16] MEDS: Carbidopa/Levodopa 25/100 TABLET PO SCH ×2 (17:05→21:47)
[2017-06-16] MEDS ORDERED: Insulin DETEMIR 100 UNIT/ML X5UNITS SQ SCH (21:00)
[2017-06-16] MEDS: Lactobacillus 1 EACH CAP.SPRINK PO SCH (21:46)
[2017-06-16] MEDS: Acetaminophen 325 MG TABLET PO PRN (21:46)
[2017-06-16] MEDS: Magnesium Oxide 400 MG TABLET PO SCH (21:47)
[2017-06-16] MEDS ORDERED: Insulin DETEMIR 100 UNIT/ML per UNIT SQ ONE (22:00)
[2017-06-17] MEDS: Vancomycin Oral Soln 250 MG/5 ML UDC PO SCH ×4 (00:16→17:15)
[2017-06-17 05:43] LABS: Basophils % 0.5 %; Eosinophils # 0.6 K/mcL (0.0-0.6); Eosinophils % 7.2 %; Hematocrit 32.6 % (35.3-44.9); Hemoglobin 10.2 g/dL (11.5-15.4); Immature Granulocytes % 1.1 % (0-4); Lymphocytes # 1.2 K/mcL (0.6-4.6); Lymphocytes % 14.2 %; Mean Corpuscular HGB Conc 31.3 g/dL (31.6-35.5); Mean Corpuscular Hemoglobin 25.6 pg (28.0-33.3); Mean Corpuscular Volume 81.9 fL (83.0-100.0); Mean Platelet Volume 11.7 fL (9.4-12.4); Monocytes # 0.4 K/mcL (0.0-1.3); Monocytes % 5.2 %; Platelet Count 261 K/mcL (140-400); Red Blood Count 3.98 M/mcL (3.82-4.97); Red Cell Distribution Width 13.8 % (11.5-14.5); Segmented Neutrophils % 71.8 %
[2017-06-17 05:57] LABS: eGFR For African Americans > 60 (> 60); eGFR For Non-African Americans 60 (> 60)
[2017-06-17 06:21] LABS: Prothrombin Time 10.5 Seconds (9.4-12.1)
[2017-06-17 06:23] LABS: Activated Partial Thrombo Time 26.7 Seconds (26.0-36.0)
[2017-06-17] MEDS: Levothyroxine 25 MCG TABLET PO SCH (06:49)
[2017-06-17] MEDS: Ascorbic Acid 500 MG TABLET PO SCH (06:49)
[2017-06-17] MEDS: Insulin LISPRO 300 UNITS/3 ML VIAL SQ SCH ×3 (07:56→17:16)
[2017-06-17] MEDS: Carbidopa/Levodopa 25/100 TABLET PO SCH ×3 (08:14→23:02)
[2017-06-17] MEDS: Lactobacillus 1 EACH CAP.SPRINK PO SCH ×2 (08:14→23:01)
[2017-06-17] MEDS: Fenofibrate 54 MG TABLET PO SCH (08:16)
[2017-06-17] MEDS: Magnesium Oxide 400 MG TABLET PO SCH ×2 (08:16→23:01)
[2017-06-17] MEDS: Metoprolol XL (24 HR) Succ 25 MG TAB.ER.24H PO SCH (08:16)
[2017-06-17] MEDS: Multivit/Ca/Min/Fe/FA 1 TAB TABLET PO SCH (08:16)
[2017-06-17] MEDS: Acetaminophen 325 MG TABLET PO PRN (10:26)
[2017-06-17] MEDS ORDERED: Insulin DETEMIR 100 UNIT/ML X5UNITS SQ SCH (21:00)
[2017-06-18] MEDS: Vancomycin Oral Soln 250 MG/5 ML UDC PO SCH ×5 (01:00→22:23)
[2017-06-18] MEDS: Levothyroxine 25 MCG TABLET PO SCH (06:35)
[2017-06-18] MEDS: Ascorbic Acid 500 MG TABLET PO SCH (06:35)
[2017-06-18] MEDS: Insulin LISPRO 300 UNITS/3 ML VIAL SQ SCH ×3 (07:58→18:08)
[2017-06-18] MEDS: Magnesium Oxide 400 MG TABLET PO SCH (08:25)
[2017-06-18] MEDS: Fenofibrate 54 MG TABLET PO SCH (08:25)
[2017-06-18] MEDS: Metoprolol XL (24 HR) Succ 25 MG TAB.ER.24H PO SCH (08:25)
[2017-06-18] MEDS: Lactobacillus 1 EACH CAP.SPRINK PO SCH ×2 (08:25→22:22)
[2017-06-18] MEDS: Carbidopa/Levodopa 25/100 TABLET PO SCH ×3 (08:26→22:22)
[2017-06-18] MEDS: Multivit/Ca/Min/Fe/FA 1 TAB TABLET PO SCH (08:27)
--- NOTE | 2017-06-18 10:11 | Internal Med Progress Note ---
Date of Encounter: 06/18/17 Time of Encounter: 10:00 - Assessment and plan (1) C. difficile colitis Current Visit: No Status: Acute Assessment and plan: June 18. Continue oral vancomycin and lactobacillus. Magnesium oxide will be discontinued to avoid worsening diarrhea. (2) Diabetes mellitus Current Visit: No Status: Chronic Assessment and plan: June 18. Hemoglobin A1c was 7.3% on 06/04/2017. We will increase Levemir to 10 units twice a day. Continue Accu-Cheks with SSI. Qualifiers: Diabetes mellitus type: type 2 Diabetes mellitus complication detail: with chronic kidney disease Diabetes mellitus alf insulin use: with alf use Chronic kidney disease stage: stage 3 (moderate) Qualified Code(s) : E11.22 - Type 2 diabetes mellitus with diabetic chronic kidney disease; N18.3 - Chronic kidney disease, stage 3 (moderate); Z79.4 - jail (current) use of insulin (3) Hypertension Current Visit: No Status: Chronic Assessment and plan: June 18. Continue Toprol-XL 25 mg daily. Qualifiers: Hypertension type: essential hypertension Qualified Code(s): I10 - Essential (primary) hypertension (4) Chronic renal insufficiency, stage III (moderate) Current Visit: No Status: Chronic Assessment and plan: June 18. Creatinine is normal. Continue to monitor renal indices. (5) Anemia Current Visit: No Status: Chronic Assessment and plan: June 18. Hemoglobin has risen to 10.2. Continue reduced dose aspirin and ferrous sulfate with vitamin C supplement. Qualifiers: Anemia type: unspecified type Qualified Code(s): D64.9 - Anemia, unspecified - Subjective Interval history: June 18. She was hospitalized in acute care June 13 after presenting with C. difficile diarrhea. She was started on oral vancomycin. There was improvement overall clinically but it was felt she would benefit from ongoing care in swing bed. She reports continuing diarrhea today. - Constitutional Vitals: Temp Pulse Resp BP Pulse Ox 98.0 F 94 16 130/70 93 06/18/17 07:11 06/18/17 07:11 06/18/17 07:11 06/18/17 07:11 06/18/17 07:11 Exam: She is resting comfortably on the side of the bed and appears in no acute distress. Her affect is bright and cheerful. I reviewed her medications and lab results. Internal Medicine: Result - Labs CBC & Chem 7: 06/17/17 05:30 06/17/17 05:30 - ABG Interpretation ABG results: PT/INR, D-dimer PT 10.5 Seconds (9.4-12.1) 06/17/17 05:30 Consult Discharge Plan - Plan Referrals: Cesar Ferris MD [Primary Care Provider] - 1 week
[2017-06-18] MEDS: Aspirin Enteric Coated 81 MG Tablet PO SCH (12:40)
[2017-06-18] MEDS: Insulin DETEMIR 100 UNIT/ML X5UNITS SQ SCH (22:23)
[2017-06-19] MEDS: Levothyroxine 25 MCG TABLET PO SCH (06:51)
[2017-06-19] MEDS: Ascorbic Acid 500 MG TABLET PO SCH (06:51)
[2017-06-19] MEDS: Vancomycin Oral Soln 250 MG/5 ML UDC PO SCH ×3 (06:52→17:15)
[2017-06-19] MEDS: Insulin LISPRO 300 UNITS/3 ML VIAL SQ SCH ×3 (08:36→17:15)
[2017-06-19] MEDS: Lactobacillus 1 EACH CAP.SPRINK PO SCH ×2 (08:38→21:17)
[2017-06-19] MEDS: Metoprolol XL (24 HR) Succ 25 MG TAB.ER.24H PO SCH (08:38)
[2017-06-19] MEDS: Fenofibrate 54 MG TABLET PO SCH (08:38)
[2017-06-19] MEDS: Carbidopa/Levodopa 25/100 TABLET PO SCH ×3 (08:39→21:17)
[2017-06-19] MEDS: Insulin DETEMIR 100 UNIT/ML X5UNITS SQ SCH ×2 (08:40→21:16)
--- NOTE | 2017-06-19 10:08 | Internal Med Progress Note ---
Date of Encounter: 06/19/17 Time of Encounter: 09:55 - Assessment and plan (1) C. difficile colitis Current Visit: No Status: Acute Assessment and plan: June 18. Continue oral vancomycin and lactobacillus. Magnesium oxide will be discontinued to avoid worsening diarrhea. (2) Diabetes mellitus Current Visit: No Status: Chronic Assessment and plan: June 18. Hemoglobin A1c was 7.3% on 06/04/2017. We will increase Levemir to 10 units twice a day. Continue Accu-Cheks with SSI. Qualifiers: Diabetes mellitus type: type 2 Diabetes mellitus complication detail: with chronic kidney disease Diabetes mellitus custodial insulin use: with custodial use Chronic kidney disease stage: stage 3 (moderate) Qualified Code(s) : E11.22 - Type 2 diabetes mellitus with diabetic chronic kidney disease; N18.3 - Chronic kidney disease, stage 3 (moderate); Z79.4 - assisted (current) use of insulin (3) Hypertension Current Visit: No Status: Chronic Assessment and plan: June 18. Continue Toprol-XL 25 mg daily. Qualifiers: Hypertension type: essential hypertension Qualified Code(s): I10 - Essential (primary) hypertension (4) Chronic renal insufficiency, stage III (moderate) Current Visit: No Status: Chronic Assessment and plan: June 18. Creatinine is normal. Continue to monitor renal indices. (5) Anemia Current Visit: No Status: Chronic Assessment and plan: June 18. Hemoglobin has risen to 10.2. Continue reduced dose aspirin and ferrous sulfate with vitamin C supplement. June 19. We will recheck labs in a.m. Qualifiers: Anemia type: unspecified type Qualified Code(s): D64.9 - Anemia, unspecified - Subjective Interval history: June 18. She was hospitalized in acute care June 13- after presenting with C. difficile diarrhea. She was started on oral vancomycin. There was improvement overall clinically but it was felt she would benefit from ongoing care in swing bed. She reports continuing diarrhea today. June 19. She has no new complaints. She states her diarrhea is a "little better" - Constitutional Vitals: Temp Pulse Resp BP Pulse Ox 98.2 F 84 18 146/71 94 06/19/17 06:50 06/19/17 06:50 06/19/17 06:50 06/19/17 06:50 06/19/17 06:50 Exam: She is resting comfortably in bed and appears in no acute distress. Her affect is bright and cheerful. I reviewed her medications and lab results. Internal Medicine: Result - Labs CBC & Chem 7: 06/17/17 05:30 06/17/17 05:30 - ABG Interpretation ABG results: PT/INR, D-dimer PT 10.5 Seconds (9.4-12.1) 06/17/17 05:30 Consult Discharge Plan - Plan Referrals: Cesar Ferris MD [Primary Care Provider] - 1 week
[2017-06-19] MEDS: Acetaminophen 325 MG TABLET PO PRN (21:16)
[2017-06-20] MEDS: Vancomycin Oral Soln 250 MG/5 ML UDC PO SCH ×2 (00:42→10:54)
[2017-06-20 05:00] LABS: Basophils # 0.1 K/mcL (0.0-0.2); Basophils % 0.5 %; Eosinophils # 0.6 K/mcL (0.0-0.6); Eosinophils % 5.7 %; Hemoglobin 10.2 g/dL (11.5-15.4); Immature Granulocytes % 1.5 % (0-4); Lymphocytes # 1.6 K/mcL (0.6-4.6); Lymphocytes % 14.7 %; Mean Corpuscular HGB Conc 30.9 g/dL (31.6-35.5); Mean Corpuscular Hemoglobin 25.7 pg (28.0-33.3); Mean Corpuscular Volume 83.1 fL (83.0-100.0); Mean Platelet Volume 12.1 fL (9.4-12.4); Monocytes # 0.7 K/mcL (0.0-1.3); Neutrophils # 7.8 K/mcL (1.6-8.9); Platelet Count 264 K/mcL (140-400); Red Blood Count 3.97 M/mcL (3.82-4.97); Red Cell Distribution Width 14.1 % (11.5-14.5); Segmented Neutrophils % 71.6 %
[2017-06-20 05:18] LABS: BUN/Creatinine Ratio 21 (6-26); Blood Urea Nitrogen 20 mg/dL (7-20); Calcium 8.5 mg/dL (8.6-10.8); Carbon Dioxide 32 mEq/L (19-29); Chloride 102 mEq/L (98-109); Glucose 87 mg/dL (70-99); Magnesium 1.5 mg/dL (1.6-2.6); Osmolality,Calculated 296 (280-300); Sodium 142 mEq/L (136-145); eGFR For African Americans > 60 (> 60); eGFR For Non-African Americans 56 (> 60)
[2017-06-20] MEDS: Ascorbic Acid 500 MG TABLET PO SCH (06:30)
[2017-06-20] MEDS: Levothyroxine 25 MCG TABLET PO SCH (06:30)
[2017-06-20] MEDS: Insulin DETEMIR 100 UNIT/ML X5UNITS SQ SCH ×2 (09:37→21:47)
[2017-06-20] MEDS: Fenofibrate 54 MG TABLET PO SCH (09:38)
[2017-06-20] MEDS: Metoprolol XL (24 HR) Succ 25 MG TAB.ER.24H PO SCH (09:38)
[2017-06-20] MEDS: Lactobacillus 1 EACH CAP.SPRINK PO SCH ×2 (09:38→21:46)
[2017-06-20] MEDS: Insulin LISPRO 300 UNITS/3 ML VIAL SQ SCH ×3 (09:39→17:26)
[2017-06-20] MEDS: Carbidopa/Levodopa 25/100 TABLET PO SCH ×3 (09:40→21:47)
[2017-06-20] MEDS ORDERED: Fidaxomicin 200 MG TABLET PO SCH ×3 (10:45→21:00)
[2017-06-20] MEDS ORDERED: Bismuth Subsalicylate 120 ML ORAL SUSPENSION PO SCH (10:45)
[2017-06-20] MEDS: Acetaminophen 325 MG TABLET PO PRN ×2 (10:52→23:10)
--- NOTE | 2017-06-20 11:07 | Internal Med Progress Note ---
Date of Encounter: 06/20/17 Time of Encounter: 10:55 - Assessment and plan (1) C. difficile colitis Current Visit: No Status: Acute Assessment and plan: June 18. Continue oral vancomycin and lactobacillus. Magnesium oxide will be discontinued to avoid worsening diarrhea. June 20. Will change from vancomycin to Dificid and add bismuth subsalicylate to see if diarrhea improves. (2) Diabetes mellitus Current Visit: No Status: Chronic Assessment and plan: June 18. Hemoglobin A1c was 7.3% on 06/04/2017. We will increase Levemir to 10 units twice a day. Continue Accu-Cheks with SSI. 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 Continue Toprol-XL 25 mg daily. June 20. Blood pressure is still suboptimally controlled. Will add verapamil and continue Toprol-XL. Qualifiers: Hypertension type: essential hypertension Qualified Code(s): I10 - Essential (primary) hypertension (4) Chronic renal insufficiency, stage III (moderate) Current Visit: No Status: Chronic Assessment and plan: June 18. Creatinine is normal. Continue to monitor renal indices. (5) Anemia Current Visit: No Status: Chronic Assessment and plan: June 18. Hemoglobin has risen to 10.2. Continue reduced dose aspirin and ferrous sulfate with vitamin C supplement. June 19. We will recheck labs in a.m. June 20. Hemoglobin stable at 10.2. Continue present regimen. Qualifiers: Anemia type: unspecified type Qualified Code(s): D64.9 - Anemia, unspecified - Subjective Interval history: June 18. She was hospitalized in acute care June 13- after presenting with C. difficile diarrhea. She was started on oral vancomycin. There was improvement overall clinically but it was felt she would benefit from ongoing care in swing bed. She reports continuing diarrhea today. June 19. She has no new complaints. She states her diarrhea is a "little better" June 20. She states she feels "cold all over". She still having some abdominal pain and diarrhea. - Constitutional Vitals: Temp Pulse Resp BP Pulse Ox 97.4 F L 74 16 145/72 94 06/20/17 07:16 06/20/17 07:16 06/20/17 07:16 06/20/17 07:16 06/20/17 07:16 Exam: She is resting comfortably in bed and appears in no acute distress. Her affect is overall cheerful. I reviewed her medications and lab results. Internal Medicine: Result - Labs CBC & Chem 7: 06/20/17 04:15 06/20/17 04:15 Labs: Short CBC 06/20/17 Range/Units 04:15 WBC 10.9 (4.3-11.1) K/mcL Hgb 10.2 L (11.5-15.4) g/dL Hct 33.0 L (35.3-44.9) % Plt Count 264 (140-400) K/mcL Neutrophils # 7.8 (1.6-8.9) K/mcL BMP 06/20/17 04:15 Sodium 142 Potassium 4.0 Chloride 102 Carbon Dioxide 32 H BUN 20 Creatinine 0.95 Glucose 87 Calcium 8.5 L - ABG Interpretation ABG results: PT/INR, D-dimer PT 10.5 Seconds (9.4-12.1) 06/17/17 05:30 Consult Discharge Plan - Plan Referrals: Cesar Ferris MD [Primary Care Provider] - 1 week
[2017-06-20] MEDS ORDERED: Verapamil ER (24 HR) 120 MG TABLET.ER PO SCH (11:15)
[2017-06-20] MEDS: Verapamil ER (24 HR) 240 MG TABLET.ER PO SCH (12:30)
[2017-06-20] MEDS: Aspirin Enteric Coated 81 MG Tablet PO SCH (12:30)
[2017-06-20] MEDS: Bismuth Subsalicylate 120 ML ORAL SUSPENSION PO SCH ×2 (12:33→21:48)
[2017-06-20] MEDS: Fidaxomicin 200 MG TABLET PO SCH (21:47)
[2017-06-21] MEDS: Ascorbic Acid 500 MG TABLET PO SCH (06:15)
[2017-06-21] MEDS: Levothyroxine 25 MCG TABLET PO SCH (06:16)
[2017-06-21] MEDS: Insulin LISPRO 300 UNITS/3 ML VIAL SQ SCH ×3 (08:34→17:16)
[2017-06-21] MEDS ORDERED: Verapamil ER (24 HR) 240 MG TABLET.ER PO SCH (09:00)
[2017-06-21] MEDS: Insulin DETEMIR 100 UNIT/ML X5UNITS SQ SCH ×2 (09:35→20:30)
[2017-06-21] MEDS: Verapamil ER (24 HR) 240 MG TABLET.ER PO SCH (09:35)
[2017-06-21] MEDS: Fidaxomicin 200 MG TABLET PO SCH ×2 (09:36→20:30)
[2017-06-21] MEDS: Fenofibrate 54 MG TABLET PO SCH (09:36)
[2017-06-21] MEDS: Carbidopa/Levodopa 25/100 TABLET PO SCH ×3 (09:36→20:31)
[2017-06-21] MEDS: Metoprolol XL (24 HR) Succ 25 MG TAB.ER.24H PO SCH (09:36)
[2017-06-21] MEDS: Bismuth Subsalicylate 120 ML ORAL SUSPENSION PO SCH ×2 (09:36→20:31)
[2017-06-21] MEDS: Lactobacillus 1 EACH CAP.SPRINK PO SCH ×2 (09:36→20:30)
[2017-06-21] MEDS: Acetaminophen 325 MG TABLET PO PRN (11:19)
[2017-06-22] MEDS: Ascorbic Acid 500 MG TABLET PO SCH (06:32)
[2017-06-22] MEDS: Levothyroxine 25 MCG TABLET PO SCH (06:33)
[2017-06-22] MEDS: Insulin LISPRO 300 UNITS/3 ML VIAL SQ SCH ×3 (08:33→17:21)
[2017-06-22] MEDS: Carbidopa/Levodopa 25/100 TABLET PO SCH ×3 (08:47→21:26)
[2017-06-22] MEDS: Insulin DETEMIR 100 UNIT/ML X5UNITS SQ SCH ×2 (08:47→21:26)
[2017-06-22] MEDS: Lactobacillus 1 EACH CAP.SPRINK PO SCH ×2 (08:47→21:25)
[2017-06-22] MEDS: Bismuth Subsalicylate 120 ML ORAL SUSPENSION PO SCH ×2 (08:47→21:26)
[2017-06-22] MEDS: Fenofibrate 54 MG TABLET PO SCH (08:48)
[2017-06-22] MEDS: Fidaxomicin 200 MG TABLET PO SCH ×2 (08:48→21:25)
[2017-06-22] MEDS: Verapamil ER (24 HR) 240 MG TABLET.ER PO SCH (08:48)
[2017-06-22] MEDS: Metoprolol XL (24 HR) Succ 25 MG TAB.ER.24H PO SCH (08:48)
[2017-06-22] MEDS: Nystatin Cream 15 GM TUBE TP SCH ×2 (08:49→21:26)
--- NOTE | 2017-06-22 10:55 | Internal Med Progress Note ---
Date of Encounter: 06/22/17 Time of Encounter: 10:45 - Assessment and plan (1) C. difficile colitis Current Visit: No Status: Acute Assessment and plan: June 18. Continue oral vancomycin and lactobacillus. Magnesium oxide will be discontinued to avoid worsening diarrhea. June 20. Will change from vancomycin to Dificid and add bismuth subsalicylate to see if diarrhea improves. June 22. Continue Dificid and bismuth subsalicylate (2) Diabetes mellitus Current Visit: No Status: Chronic Assessment and plan: June 18. Hemoglobin A1c was 7.3% on 06/04/2017. We will increase Levemir to 10 units twice a day. Continue Accu-Cheks with SSI. June 22. Blood sugars improved. Continue present regimen Qualifiers: Diabetes mellitus type: type 2 Diabetes mellitus complication detail: with chronic kidney disease Diabetes mellitus manager intermediate insulin use: with manager intermediate use Chronic kidney disease stage: stage 3 (moderate) Qualified Code(s) : E11.22 - Type 2 diabetes mellitus with diabetic chronic kidney disease; N18.3 - Chronic kidney disease, stage 3 (moderate); Z79.4 - prison (current) use of insulin (3) Hypertension Current Visit: No Status: Chronic Assessment and plan: June 18. Continue Toprol-XL 25 mg daily. June 20. Blood pressure is still suboptimally controlled. Will add verapamil and continue Toprol-XL. June 22. Blood pressures are improved. Continue verapamil and Toprol Qualifiers: Hypertension type: essential hypertension Qualified Code(s): I10 - Essential (primary) hypertension (4) Chronic renal insufficiency, stage III (moderate) Current Visit: No Status: Chronic Assessment and plan: June 18. Creatinine is normal. Continue to monitor renal indices. (5) Anemia Current Visit: No Status: Chronic Assessment and plan: June 18. Hemoglobin has risen to 10.2. Continue reduced dose aspirin and ferrous sulfate with vitamin C supplement. June 19. We will recheck labs in a.m. June 20. Hemoglobin stable at 10.2. Continue present regimen. June 22. Recheck labs in a.m. Qualifiers: Anemia type: unspecified type Qualified Code(s): D64.9 - Anemia, unspecified - Subjective Interval history: June 18. She was hospitalized in acute care June 13- after presenting with C. difficile diarrhea. She was started on oral vancomycin. There was improvement overall clinically but it was felt she would benefit from ongoing care in swing bed. She reports continuing diarrhea today. June 19. She has no new complaints. She states her diarrhea is a "little better" June 20. She states she feels "cold all over". She still having some abdominal pain and diarrhea. June 22. She has no new complaints. She states her abdominal pain has completely gone. She thinks her diarrhea may be slightly lessened - Constitutional Vitals: Temp Pulse Resp BP Pulse Ox 98.2 F 93 18 123/70 94 06/22/17 06:27 06/22/17 06:27 06/22/17 06:27 06/22/17 06:27 06/22/17 06:27 Exam: She is resting comfortably in bed and appears in no acute distress. Her affect is bright and cheerful. I reviewed her medications and lab results. Internal Medicine: Result - Labs CBC & Chem 7: 06/20/17 04:15 06/20/17 04:15 - ABG Interpretation ABG results: PT/INR, D-dimer PT 10.5 Seconds (9.4-12.1) 06/17/17 05:30 Consult Discharge Plan - Plan Referrals: Cesar Ferris MD [Primary Care Provider] - 1 week
[2017-06-22] MEDS: Aspirin Enteric Coated 81 MG Tablet PO SCH (17:21)
[2017-06-23] MEDS: Ascorbic Acid 500 MG TABLET PO SCH (06:42)
[2017-06-23 06:43] LABS: Basophils # 0.1 K/mcL (0.0-0.2); Basophils % 0.5 %; Eosinophils # 0.5 K/mcL (0.0-0.6); Eosinophils % 5.2 %; Hematocrit 33.8 % (35.3-44.9); Hemoglobin 10.4 g/dL (11.5-15.4); Lymphocytes # 1.3 K/mcL (0.6-4.6); Lymphocytes % 13.1 %; Mean Corpuscular HGB Conc 30.8 g/dL (31.6-35.5); Mean Corpuscular Hemoglobin 25.6 pg (28.0-33.3); Mean Corpuscular Volume 83.3 fL (83.0-100.0); Mean Platelet Volume 12.2 fL (9.4-12.4); Monocytes # 0.4 K/mcL (0.0-1.3); Monocytes % 4.2 %; Neutrophils # 7.7 K/mcL (1.6-8.9); Platelet Count 262 K/mcL (140-400); Red Blood Count 4.06 M/mcL (3.82-4.97); Red Cell Distribution Width 14.7 % (11.5-14.5)
[2017-06-23] MEDS: Levothyroxine 25 MCG TABLET PO SCH (06:46)
[2017-06-23 07:11] LABS: BUN/Creatinine Ratio 25 (6-26); Blood Urea Nitrogen 23 mg/dL (7-20); Calcium 8.7 mg/dL (8.6-10.8); Carbon Dioxide 30 mEq/L (19-29); Chloride 102 mEq/L (98-109); Glucose 98 mg/dL (70-99); Magnesium 1.6 mg/dL (1.6-2.6); Osmolality,Calculated 294 (280-300); Potassium 4.4 mEq/L (3.5-4.5); Sodium 140 mEq/L (136-145); eGFR For African Americans > 60 (> 60); eGFR For Non-African Americans 58 (> 60)
[2017-06-23] MEDS: Fidaxomicin 200 MG TABLET PO SCH ×2 (09:32→21:02)
[2017-06-23] MEDS: Verapamil ER (24 HR) 240 MG TABLET.ER PO SCH (09:32)
[2017-06-23] MEDS: Metoprolol XL (24 HR) Succ 25 MG TAB.ER.24H PO SCH (09:33)
[2017-06-23] MEDS: Insulin DETEMIR 100 UNIT/ML X5UNITS SQ SCH ×2 (09:33→21:03)
[2017-06-23] MEDS: Fenofibrate 54 MG TABLET PO SCH (09:33)
[2017-06-23] MEDS: Carbidopa/Levodopa 25/100 TABLET PO SCH ×3 (09:33→21:03)
[2017-06-23] MEDS: Lactobacillus 1 EACH CAP.SPRINK PO SCH ×2 (09:33→21:03)
[2017-06-23] MEDS: Insulin LISPRO 300 UNITS/3 ML VIAL SQ SCH ×3 (09:34→17:11)
[2017-06-23] MEDS: Nystatin Cream 15 GM TUBE TP SCH ×2 (09:35→21:04)
[2017-06-23] MEDS: Bismuth Subsalicylate 120 ML ORAL SUSPENSION PO SCH ×2 (09:35→21:03)
--- NOTE | 2017-06-23 10:22 | Internal Med Progress Note ---
Date of Encounter: 06/23/17 Time of Encounter: 10:00 - Assessment and plan (1) C. difficile colitis Current Visit: No Status: Acute Assessment and plan: June 18. Continue oral vancomycin and lactobacillus. Magnesium oxide will be discontinued to avoid worsening diarrhea. June 20. Will change from vancomycin to Dificid and add bismuth subsalicylate to see if diarrhea improves. June 22. Continue Dificid and bismuth subsalicylate (2) Diabetes mellitus Current Visit: No Status: Chronic Assessment and plan: June 18. Hemoglobin A1c was 7.3% on 06/04/2017. We will increase Levemir to 10 units twice a day. Continue Accu-Cheks with SSI. June 22. Blood sugars improved. Continue present regimen June 23. Blood sugars remain slightly above desirable range. We will increase Levemir to 12 units twice a day Qualifiers: Diabetes mellitus type: type 2 Diabetes mellitus complication detail: with chronic kidney disease Diabetes mellitus [facility] insulin use: with intermediate project manager use Chronic kidney disease stage: stage 3 (moderate) Qualified Code(s) : E11.22 - Type 2 diabetes mellitus with diabetic chronic kidney disease; N18.3 - Chronic kidney disease, stage 3 (moderate); Z79.4 - [facility] (current) use of insulin (3) Hypertension Current Visit: No Status: Chronic Assessment and plan: June 18. Continue Toprol-XL 25 mg daily. June 20. Blood pressure is still suboptimally controlled. Will add verapamil and continue Toprol-XL. June 22. Blood pressures are improved. Continue verapamil and Toprol Qualifiers: Hypertension type: essential hypertension Qualified Code(s): I10 - Essential (primary) hypertension (4) Chronic renal insufficiency, stage III (moderate) Current Visit: No Status: Chronic Assessment and plan: June 18. Creatinine is normal. Continue to monitor renal indices. (5) Anemia Current Visit: No Status: Chronic Assessment and plan: June 18. Hemoglobin has risen to 10.2. Continue reduced dose aspirin and ferrous sulfate with vitamin C supplement. June 19. We will recheck labs in a.m. June 20. Hemoglobin stable at 10.2. Continue present regimen. June 22. Recheck labs in a.m. June 23. Hemoglobin has improved to 10.4. Continue present regimen Qualifiers: Anemia type: unspecified type Qualified Code(s): D64.9 - Anemia, unspecified - Subjective Interval history: June 18. She was hospitalized in acute care June 13- after presenting with C. difficile diarrhea. She was started on oral vancomycin. There was improvement overall clinically but it was felt she would benefit from ongoing care in swing bed. She reports continuing diarrhea today. June 19. She has no new complaints. She states her diarrhea is a "little better" June 20. She states she feels "cold all over". She still having some abdominal pain and diarrhea. June 22. She has no new complaints. She states her abdominal pain has completely gone. She thinks her diarrhea may be slightly lessened June 23. She has no new complaints and states she feels better overall. - Constitutional Vitals: Temp Pulse Resp BP Pulse Ox 98.6 F 85 18 116/71 99 06/23/17 06:55 06/23/17 06:55 06/23/17 06:55 06/23/17 06:55 06/23/17 06:55 Exam: She is ambulating in the hallway and appears in no acute distress. Her affect is bright and cheerful. I reviewed her medications and lab results. Internal Medicine: Result - Labs CBC & Chem 7: 06/23/17 06:14 06/23/17 06:14 Labs: Short CBC 06/23/17 Range/Units 06:14 WBC 10.1 (4.3-11.1) K/mcL Hgb 10.4 L (11.5-15.4) g/dL Hct 33.8 L (35.3-44.9) % Plt Count 262 (140-400) K/mcL Neutrophils # 7.7 (1.6-8.9) K/mcL BMP 06/23/17 06:14 Sodium 140 Potassium 4.4 Chloride 102 Carbon Dioxide 30 H BUN 23 H Creatinine 0.92 Glucose 98 Calcium 8.7 - ABG Interpretation ABG results: PT/INR, D-dimer PT 10.5 Seconds (9.4-12.1) 06/17/17 05:30 Consult Discharge Plan - Plan Referrals: Cesar Ferris MD [Primary Care Provider] - 1 week
[2017-06-23] MEDS: Acetaminophen 325 MG TABLET PO PRN (21:02)
[2017-06-24] MEDS: Levothyroxine 25 MCG TABLET PO SCH (06:30)
[2017-06-24] MEDS: Ascorbic Acid 500 MG TABLET PO SCH (06:30)
[2017-06-24] MEDS: Insulin LISPRO 300 UNITS/3 ML VIAL SQ SCH ×3 (07:57→17:19)
[2017-06-24] MEDS: Verapamil ER (24 HR) 240 MG TABLET.ER PO SCH (07:57)
[2017-06-24] MEDS: Fidaxomicin 200 MG TABLET PO SCH ×2 (07:57→21:03)
[2017-06-24] MEDS: Lactobacillus 1 EACH CAP.SPRINK PO SCH ×2 (07:57→21:01)
[2017-06-24] MEDS: Fenofibrate 54 MG TABLET PO SCH (07:58)
[2017-06-24] MEDS: Metoprolol XL (24 HR) Succ 25 MG TAB.ER.24H PO SCH (07:58)
[2017-06-24] MEDS: Carbidopa/Levodopa 25/100 TABLET PO SCH ×3 (08:00→21:03)
[2017-06-24] MEDS: Nystatin Cream 15 GM TUBE TP SCH ×2 (08:00→21:04)
[2017-06-24] MEDS: Bismuth Subsalicylate 120 ML ORAL SUSPENSION PO SCH ×2 (08:00→21:03)
[2017-06-24] MEDS: Insulin DETEMIR 100 UNIT/ML X5UNITS SQ SCH ×2 (11:49→21:03)
[2017-06-24] MEDS: Aspirin Enteric Coated 81 MG Tablet PO SCH (17:18)
[2017-06-24] MEDS: Acetaminophen 325 MG TABLET PO PRN (17:24)
[2017-06-25] MEDS: Levothyroxine 25 MCG TABLET PO SCH (05:51)
[2017-06-25] MEDS: Ascorbic Acid 500 MG TABLET PO SCH (05:51)
[2017-06-25] MEDS: Insulin DETEMIR 100 UNIT/ML X5UNITS SQ SCH ×2 (09:55→22:50)
[2017-06-25] MEDS: Insulin LISPRO 300 UNITS/3 ML VIAL SQ SCH ×3 (09:56→17:02)
[2017-06-25] MEDS: Verapamil ER (24 HR) 240 MG TABLET.ER PO SCH (09:56)
[2017-06-25] MEDS: Fidaxomicin 200 MG TABLET PO SCH ×2 (09:57→22:49)
[2017-06-25] MEDS: Fenofibrate 54 MG TABLET PO SCH (09:57)
[2017-06-25] MEDS: Lactobacillus 1 EACH CAP.SPRINK PO SCH ×2 (09:57→22:49)
[2017-06-25] MEDS: Bismuth Subsalicylate 120 ML ORAL SUSPENSION PO SCH ×2 (10:06→22:49)
[2017-06-25] MEDS: Nystatin Cream 15 GM TUBE TP SCH ×2 (10:06→22:49)
[2017-06-25] MEDS: Carbidopa/Levodopa 25/100 TABLET PO SCH ×3 (10:07→22:49)
[2017-06-25] MEDS: Metoprolol XL (24 HR) Succ 25 MG TAB.ER.24H PO SCH (10:07)
--- NOTE | 2017-06-25 10:20 | Internal Med Progress Note ---
Date of Encounter: 06/25/17 Time of Encounter: 10:14 - Assessment and plan (1) C. difficile colitis Current Visit: No Status: Acute Assessment and plan: June 18. Continue oral vancomycin and lactobacillus. Magnesium oxide will be discontinued to avoid worsening diarrhea. June 20. Will change from vancomycin to Dificid and add bismuth subsalicylate to see if diarrhea improves. June 22. Continue Dificid and bismuth subsalicylate (2) Diabetes mellitus Current Visit: No Status: Chronic Assessment and plan: June 18. Hemoglobin A1c was 7.3% on 06/04/2017. We will increase Levemir to 10 units twice a day. Continue Accu-Cheks with SSI. June 22. Blood sugars improved. Continue present regimen June 23. Blood sugars remain slightly above desirable range. We will increase Levemir to 12 units twice a day June 25. Blood sugars show fluctuation. Continue present dose Levemir. Qualifiers: Diabetes mellitus type: type 2 Diabetes mellitus complication detail: with chronic kidney disease Diabetes mellitus prison insulin use: with roasterman use Chronic kidney disease stage: stage 3 (moderate) Qualified Code(s) : E11.22 - Type 2 diabetes mellitus with diabetic chronic kidney disease; N18.3 - Chronic kidney disease, stage 3 (moderate); Z79.4 - half-way (current) use of insulin (3) Hypertension Current Visit: No Status: Chronic Assessment and plan: June 18. Continue Toprol-XL 25 mg daily. June 20. Blood pressure is still suboptimally controlled. Will add verapamil and continue Toprol-XL. June 22. Blood pressures are improved. Continue verapamil and Toprol Qualifiers: Hypertension type: essential hypertension Qualified Code(s): I10 - Essential (primary) hypertension (4) Chronic renal insufficiency, stage III (moderate) Current Visit: No Status: Chronic Assessment and plan: June 18. Creatinine is normal. Continue to monitor renal indices. (5) Anemia Current Visit: No Status: Chronic Assessment and plan: June 18. Hemoglobin has risen to 10.2. Continue reduced dose aspirin and ferrous sulfate with vitamin C supplement. June 19. We will recheck labs in a.m. June 20. Hemoglobin stable at 10.2. Continue present regimen. June 22. Recheck labs in a.m. June 23. Hemoglobin has improved to 10.4. Continue present regimen Qualifiers: Anemia type: unspecified type Qualified Code(s): D64.9 - Anemia, unspecified - Subjective Interval history: June 18. She was hospitalized in acute care June 13- after presenting with C. difficile diarrhea. She was started on oral vancomycin. There was improvement overall clinically but it was felt she would benefit from ongoing care in swing bed. She reports continuing diarrhea today. June 19. She has no new complaints. She states her diarrhea is a "little better" June 20. She states she feels "cold all over". She still having some abdominal pain and diarrhea. June 22. She has no new complaints. She states her abdominal pain has completely gone. She thinks her diarrhea may be slightly lessened June 23. She has no new complaints and states she feels better overall. June 25. She has no complaints. She states her abdominal pain remains resolved and her stools are less loose. - Constitutional Vitals: Temp Pulse Resp BP Pulse Ox 97.6 F 87 18 131/59 95 06/25/17 07:04 06/25/17 07:04 06/25/17 07:04 06/25/17 07:04 06/25/17 07:04 Exam: She is resting comfortably in bed and appears in no acute distress. Her affect is very bright and cheerful. Extremities show trace - 1+ edema in the periarticular area of the ankle. I reviewed her medications and lab results. Internal Medicine: Result - Labs CBC & Chem 7: 06/23/17 06:14 06/23/17 06:14 - ABG Interpretation ABG results: PT/INR, D-dimer PT 10.5 Seconds (9.4-12.1) 06/17/17 05:30 Consult Discharge Plan - Plan Referrals: Cesar Ferris MD [Primary Care Provider] - 1 week
[2017-06-25] MEDS: Magic Mouthwash 10 ML UD Cup PO SCH ×2 (17:01→22:52)
[2017-06-26] MEDS: Acetaminophen 325 MG TABLET PO PRN (06:13)
[2017-06-26] MEDS: Levothyroxine 25 MCG TABLET PO SCH (06:13)
[2017-06-26] MEDS: Ascorbic Acid 500 MG TABLET PO SCH (06:13)
[2017-06-26] MEDS: Insulin LISPRO 300 UNITS/3 ML VIAL SQ SCH ×3 (08:36→16:53)
[2017-06-26] MEDS: Lactobacillus 1 EACH CAP.SPRINK PO SCH (08:36)
[2017-06-26] MEDS: Insulin DETEMIR 100 UNIT/ML X5UNITS SQ SCH ×2 (08:36→22:22)
[2017-06-26] MEDS: Metoprolol XL (24 HR) Succ 25 MG TAB.ER.24H PO SCH (08:36)
[2017-06-26] MEDS: Carbidopa/Levodopa 25/100 TABLET PO SCH ×3 (08:36→22:21)
[2017-06-26] MEDS: Fenofibrate 54 MG TABLET PO SCH (08:36)
[2017-06-26] MEDS: Bismuth Subsalicylate 120 ML ORAL SUSPENSION PO SCH (08:36)
[2017-06-26] MEDS: Fidaxomicin 200 MG TABLET PO SCH (08:36)
[2017-06-26] MEDS: Magic Mouthwash 10 ML UD Cup PO SCH ×4 (08:36→22:21)
[2017-06-26] MEDS: Nystatin Cream 15 GM TUBE TP SCH ×2 (08:36→22:22)
[2017-06-26] MEDS: Verapamil ER (24 HR) 240 MG TABLET.ER PO SCH (08:36)
--- NOTE | 2017-06-26 14:49 | Internal Med Progress Note ---
Date of Encounter: 06/26/17 Time of Encounter: 10:25 - Assessment and plan (1) C. difficile colitis Current Visit: No Status: Acute Assessment and plan: June 18. Continue oral vancomycin and lactobacillus. Magnesium oxide will be discontinued to avoid worsening diarrhea. June 20. Will change from vancomycin to Dificid and add bismuth subsalicylate to see if diarrhea improves. June 22. Continue Dificid and bismuth subsalicylate June 26. She has completed a 2 week course of antibiotics. Will discontinue meds and monitor diarrhea. (2) Diabetes mellitus Current Visit: No Status: Chronic Assessment and plan: June 18. Hemoglobin A1c was 7.3% on 06/04/2017. We will increase Levemir to 10 units twice a day. Continue Accu-Cheks with SSI. June 22. Blood sugars improved. Continue present regimen June 23. Blood sugars remain slightly above desirable range. We will increase Levemir to 12 units twice a day June 25. Blood sugars show fluctuation. Continue present dose Levemir. Qualifiers: Diabetes mellitus type: type 2 Diabetes mellitus complication detail: with chronic kidney disease Diabetes mellitus skilled nursing insulin use: with skilled nursing use Chronic kidney disease stage: stage 3 (moderate) Qualified Code(s) : E11.22 - Type 2 diabetes mellitus with diabetic chronic kidney disease; N18.3 - Chronic kidney disease, stage 3 (moderate); Z79.4 - rn long term care (current) use of insulin (3) Hypertension Current Visit: No Status: Chronic Assessment and plan: June 18. Continue Toprol-XL 25 mg daily. June 20. Blood pressure is still suboptimally controlled. Will add verapamil and continue Toprol-XL. June 22. Blood pressures are improved. Continue verapamil and Toprol June 26. Blood sugars reviewed. Will increase verapamil to 180 mg daily to improve blood pressure and possibly lessen diarrhea. Qualifiers: Hypertension type: essential hypertension Qualified Code(s): I10 - Essential (primary) hypertension (4) Chronic renal insufficiency, stage III (moderate) Current Visit: No Status: Chronic Assessment and plan: June 18. Creatinine is normal. Continue to monitor renal indices. June 26. Recheck labs in a.m. (5) Anemia Current Visit: No Status: Chronic Assessment and plan: June 18. Hemoglobin has risen to 10.2. Continue reduced dose aspirin and ferrous sulfate with vitamin C supplement. June 19. We will recheck labs in a.m. June 20. Hemoglobin stable at 10.2. Continue present regimen. June 22. Recheck labs in a.m. June 23. Hemoglobin has improved to 10.4. Continue present regimen June 26. Recheck labs in a.m. Qualifiers: Anemia type: unspecified type Qualified Code(s): D64.9 - Anemia, unspecified - Subjective Interval history: June 18. She was hospitalized in acute care June 13 after presenting with C. difficile diarrhea. She was started on oral vancomycin. There was improvement overall clinically but it was felt she would benefit from ongoing care in swing bed. She reports continuing diarrhea today. June 19. She has no new complaints. She states her diarrhea is a "little better" June 20. She states she feels "cold all over". She still having some abdominal pain and diarrhea. June 22. She has no new complaints. She states her abdominal pain has completely gone. She thinks her diarrhea may be slightly lessened June 23. She has no new complaints and states she feels better overall. June 25. She has no complaints. She states her abdominal pain remains resolved and her stools are less loose. June 26. She denies pain. She states an episode of vomiting this morning and that her stools seem to be more loose today. - Constitutional Vitals: Temp Pulse Resp BP Pulse Ox 98.9 F 81 18 112/71 94 06/26/17 07:18 06/26/17 07:18 06/26/17 07:18 06/26/17 07:18 06/26/17 07:18 Exam: She is sitting in a chair at bedside resting comfortably. Her affect is bright and cheerful. She appears in no acute distress. I reviewed her medications and lab results. Internal Medicine: Result - Labs CBC & Chem 7: 06/23/17 06:14 06/23/17 06:14 - ABG Interpretation ABG results: PT/INR, D-dimer PT 10.5 Seconds (9.4-12.1) 06/17/17 05:30 Consult Discharge Plan - Plan Referrals: Cesar Ferris MD [Primary Care Provider] - 1 week
[2017-06-26] MEDS: Aspirin Enteric Coated 81 MG Tablet PO SCH (15:24)
[2017-06-27 05:54] LABS: Basophils # 0.1 K/mcL (0.0-0.2); Basophils % 0.8 %; Eosinophils # 0.4 K/mcL (0.0-0.6); Eosinophils % 5.3 %; Hematocrit 32.5 % (35.3-44.9); Hemoglobin 10.1 g/dL (11.5-15.4); Immature Granulocytes % 0.7 % (0-4); Lymphocytes # 1.1 K/mcL (0.6-4.6); Lymphocytes % 14.7 %; Mean Corpuscular HGB Conc 31.1 g/dL (31.6-35.5); Mean Corpuscular Hemoglobin 25.6 pg (28.0-33.3); Mean Corpuscular Volume 82.5 fL (83.0-100.0); Mean Platelet Volume 12.5 fL (9.4-12.4); Monocytes # 0.4 K/mcL (0.0-1.3); Monocytes % 5.4 %; Neutrophils # 5.3 K/mcL (1.6-8.9); Platelet Count 210 K/mcL (140-400); Red Blood Count 3.94 M/mcL (3.82-4.97); Red Cell Distribution Width 14.9 % (11.5-14.5); Segmented Neutrophils % 73.1 %
[2017-06-27 06:18] LABS: BUN/Creatinine Ratio 31 (6-26); Blood Urea Nitrogen 30 mg/dL (7-20); Calcium 8.8 mg/dL (8.6-10.8); Carbon Dioxide 30 mEq/L (19-29); Chloride 102 mEq/L (98-109); Glucose 93 mg/dL (70-99); Magnesium 1.6 mg/dL (1.6-2.6); Osmolality,Calculated 298 (280-300); Potassium 4.5 mEq/L (3.5-4.5); Sodium 141 mEq/L (136-145); eGFR For African Americans > 60 (> 60); eGFR For Non-African Americans 56 (> 60)
[2017-06-27] MEDS: Verapamil ER (24 HR) 180 MG TABLET.ER PO SCH (08:15)
[2017-06-27] MEDS: Carbidopa/Levodopa 25/100 TABLET PO SCH ×3 (08:16→20:42)
[2017-06-27] MEDS: Metoprolol XL (24 HR) Succ 25 MG TAB.ER.24H PO SCH (08:16)
[2017-06-27] MEDS: Magic Mouthwash 10 ML UD Cup PO SCH ×4 (08:16→20:42)
[2017-06-27] MEDS: Fenofibrate 54 MG TABLET PO SCH (08:16)
[2017-06-27] MEDS: Ascorbic Acid 500 MG TABLET PO SCH (08:17)
[2017-06-27] MEDS: Insulin LISPRO 300 UNITS/3 ML VIAL SQ SCH ×3 (08:18→16:36)
[2017-06-27] MEDS: Nystatin Cream 15 GM TUBE TP SCH ×2 (08:19→20:43)
[2017-06-27] MEDS: Insulin DETEMIR 100 UNIT/ML X5UNITS SQ SCH ×2 (10:15→20:42)
[2017-06-28] MEDS: Ascorbic Acid 500 MG TABLET PO SCH (06:24)
[2017-06-28] MEDS: Acetaminophen 325 MG TABLET PO PRN (06:51)
[2017-06-28] MEDS: Insulin LISPRO 300 UNITS/3 ML VIAL SQ SCH ×3 (08:14→18:00)
[2017-06-28] MEDS: Verapamil ER (24 HR) 180 MG TABLET.ER PO SCH (10:00)
[2017-06-28] MEDS: Nystatin Cream 15 GM TUBE TP SCH ×2 (10:00→22:06)
[2017-06-28] MEDS: Magic Mouthwash 10 ML UD Cup PO SCH ×4 (10:00→22:04)
[2017-06-28] MEDS: Insulin DETEMIR 100 UNIT/ML X5UNITS SQ SCH ×2 (10:00→22:04)
[2017-06-28] MEDS: Fenofibrate 54 MG TABLET PO SCH (10:01)
[2017-06-28] MEDS: Metoprolol XL (24 HR) Succ 25 MG TAB.ER.24H PO SCH (10:01)
[2017-06-28] MEDS: Carbidopa/Levodopa 25/100 TABLET PO SCH ×3 (10:01→22:06)
--- NOTE | 2017-06-28 14:46 | Internal Med Progress Note ---
Date of Encounter: 06/28/17 Time of Encounter: 14:40 - Assessment and plan (1) C. difficile colitis Current Visit: No Status: Acute Assessment and plan: June 18. Continue oral vancomycin and lactobacillus. Magnesium oxide will be discontinued to avoid worsening diarrhea. June 20. Will change from vancomycin to Dificid and add bismuth subsalicylate to see if diarrhea improves. June 22. Continue Dificid and bismuth subsalicylate June 26. She has completed a 2 week course of antibiotics. Will discontinue meds and monitor diarrhea. (2) Diabetes mellitus Current Visit: No Status: Chronic Assessment and plan: June 18. Hemoglobin A1c was 7.3% on 06/04/2017. We will increase Levemir to 10 units twice a day. Continue Accu-Cheks with SSI. June 22. Blood sugars improved. Continue present regimen June 23. Blood sugars remain slightly above desirable range. We will increase Levemir to 12 units twice a day June 25. Blood sugars show fluctuation. Continue present dose Levemir. Qualifiers: Diabetes mellitus type: type 2 Diabetes mellitus complication detail: with chronic kidney disease Diabetes mellitus care home insulin use: with care home use Chronic kidney disease stage: stage 3 (moderate) Qualified Code(s) : E11.22 - Type 2 diabetes mellitus with diabetic chronic kidney disease; N18.3 - Chronic kidney disease, stage 3 (moderate); Z79.4 - ferry terminal supervisor (current) use of insulin (3) Hypertension Current Visit: No Status: Chronic Assessment and plan: June 18. Continue Toprol-XL 25 mg daily. June 20. Blood pressure is still suboptimally controlled. Will add verapamil and continue Toprol-XL. June 22. Blood pressures are improved. Continue verapamil and Toprol June 26. Blood pressures reviewed. Will increase verapamil to 180 mg daily to improve blood pressure and possibly lessen diarrhea. Qualifiers: Hypertension type: essential hypertension Qualified Code(s): I10 - Essential (primary) hypertension (4) Chronic renal insufficiency, stage III (moderate) Current Visit: No Status: Chronic Assessment and plan: June 18. Creatinine is normal. Continue to monitor renal indices. June 26. Recheck labs in a.m. (5) Anemia Current Visit: No Status: Chronic Assessment and plan: June 18. Hemoglobin has risen to 10.2. Continue reduced dose aspirin and ferrous sulfate with vitamin C supplement. June 19. We will recheck labs in a.m. June 20. Hemoglobin stable at 10.2. Continue present regimen. June 22. Recheck labs in a.m. June 23. Hemoglobin has improved to 10.4. Continue present regimen June 26. Recheck labs in a.m. June 28. Hemoglobin decreased slightly to 10.1 yesterday. Will discontinue aspirin. Continue ferrous sulfate with vitamin C Qualifiers: Anemia type: unspecified type Qualified Code(s): D64.9 - Anemia, unspecified - Subjective Interval history: June 18. She was hospitalized in acute care June 13 after presenting with C. difficile diarrhea. She was started on oral vancomycin. There was improvement overall clinically but it was felt she would benefit from ongoing care in swing bed. She reports continuing diarrhea today. June 19. She has no new complaints. She states her diarrhea is a "little better" June 20. She states she feels "cold all over". She still having some abdominal pain and diarrhea. June 22. She has no new complaints. She states her abdominal pain has completely gone. She thinks her diarrhea may be slightly lessened June 23. She has no new complaints and states she feels better overall. June 25. She has no complaints. She states her abdominal pain remains resolved and her stools are less loose. June 26. She denies pain. She states an episode of vomiting this morning and that her stools seem to be more loose today. June 28. She has no new complaints. She has minimal residual abdominal discomfort. She reports she had a very small amount of diarrhea earlier today. - Constitutional Vitals: Temp Pulse Resp BP Pulse Ox 98.5 F 83 16 139/57 93 06/27/17 18:50 06/27/17 18:50 06/27/17 18:50 06/27/17 18:50 06/27/17 18:50 Exam: She is resting comfortably in bed and appears in no acute distress. Her affect is bright and cheerful. I reviewed her medications and lab results. Internal Medicine: Result - Labs CBC & Chem 7: 06/27/17 05:00 06/27/17 05:00 - ABG Interpretation ABG results: PT/INR, D-dimer PT 10.5 Seconds (9.4-12.1) 06/17/17 05:30 Consult Discharge Plan - Plan Referrals: Cesar Ferris MD [Primary Care Provider] - 1 week
[2017-06-29] MEDS: Ascorbic Acid 500 MG TABLET PO SCH (06:44)
[2017-06-29] MEDS: Insulin DETEMIR 100 UNIT/ML X5UNITS SQ SCH (09:12)
[2017-06-29] MEDS: Verapamil ER (24 HR) 180 MG TABLET.ER PO SCH (09:12)
[2017-06-29] MEDS: Magic Mouthwash 10 ML UD Cup PO SCH (09:12)
[2017-06-29] MEDS: Insulin LISPRO 300 UNITS/3 ML VIAL SQ SCH (09:12)
[2017-06-29] MEDS: Nystatin Cream 15 GM TUBE TP SCH (09:13)
[2017-06-29] MEDS: Metoprolol XL (24 HR) Succ 25 MG TAB.ER.24H PO SCH (09:13)
[2017-06-29] MEDS: Carbidopa/Levodopa 25/100 TABLET PO SCH (09:13)
[2017-06-29 09:46] VITALS: BP 123/69
--- NOTE | 2017-06-29 10:28 | Discharge Summary ---
Date of Encounter: 06/29/17 Time of Encounter: 10:10 - Discharge Diagnosis (1) C. 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 Chronic kidney disease stage: stage 3 (moderate) Qualified Code(s) : E11.22 - Type 2 diabetes mellitus with diabetic chronic kidney disease; N18.3 - Chronic kidney disease, stage 3 (moderate); Z79.4 - longterm (current) use of insulin (3) Hypertension Priority: Secondary Status: Chronic Qualifiers: Hypertension type: essential hypertension Qualified Code(s): I10 - Essential (primary) hypertension (4) Chronic renal insufficiency, stage III (moderate) Priority: Secondary Status: Chronic (5) Anemia Priority: Secondary Status: Chronic Qualifiers: Anemia type: unspecified type Qualified Code(s): D64.9 - Anemia, unspecified - Discharge Medications Prescriptions: Insulin Glargine [Lantus] 25 unit SQ HS 365 Days mls Verapamil ER (24 HR) [Calan SR] 180 mg PO DAILY #30 tablet.er Home Medications: Levothyroxine [Synthroid] 25 mcg PO QAM 08/09/15 [History] Carbidopa/Levodopa [Carbidopa-Levodopa 25-100 Tab] 1 each PO TID 02/05/17 [ History] Cranberry Conc/C/Bacill Coag [Azo Cranberry Tablet] 1 each PO DAILY PRN [History] Fenofibrate Nanocrystallized [Tricor] 48 mg PO DAILY 02/05/17 [History] Insulin ASPART [NovoLOG] 0 unit SQ TIDWM 02/22/17 [History] Metoprolol XL (24 HR) Succ [Toprol Xl] 25 mg PO DAILY #30 tab.er.24h 02/27/17 [ Rx] Multivit with Iron-Minerals [Compete] 1 each PO DAILY 06/13/17 [History] Acetaminophen [Tylenol] 650 mg PO Q6HR PRN tablet 06/16/17 [Rx] Ascorbic Acid [Vitamin C] 500 mg PO 0630 tablet 06/16/17 [Rx] Ferrous Sulfate 325 mg PO 0630 tablet 06/16/17 [Rx] Naloxone [Narcan] 0.4 mg IVP Q2MIN PRN inj 06/16/17 [Rx] Ferrous Sulfate 325 mg PO DAILY@0630 tablet 06/29/17 [Rx] Insulin Glargine [Lantus] 25 unit SQ HS 365 Days mls 06/29/17 [Rx] Verapamil ER (24 HR) [Calan SR] 180 mg PO DAILY #30 tablet.er 06/29/17 [Rx] Allergies/Adverse Reactions: 3 Allergy/AdvReac Type Severity Reaction Status Date / Time codeine Allergy Rash Verified 06/12/17 20:01 Date of admission: 06/16/17 14:17 Primary care physician: Cesra Ferris MD Consults: 06/16/17 14:35 Consult to Occupational Therapy [CONS] Routine Comment: eval, develop and implement plan of care Reason for Consult: eval, develop and implement plan of care Consult to Physical Therapy [CONS] Routine Comment: eval, develop and implement plan of care Reason for Consult: eval, develop and implement plan of care 06/19/17 10:11 Consult to Mold Forms Builder [CONS] Routine Reason for SW Consult: home discharge needs - Patient Status Disposition: Home Health Service Functional capacity at discharge: uses cane/walker Overall status at discharge: patient is progressing back to baseline - Discharge Instructions Follow Up With: Cesar Ferris MD [Primary Care Provider] - 1 week - Diet and Activity Activity: resume usual activities as tolerated Diet: advance to your usual diet Hospital course: Ms. Chen is a 82 year old female who was hospitalized in acute care June 13 after presenting with C. difficile diarrhea. She was started on oral vancomycin. There was improvement overall clinically but it was felt she would benefit from ongoing care in swing bed. She continued on oral vancomycin and lactobacillus initially in swing bed. Her diarrhea had minimal improvement so she was changed to Dificid and bismuth subsalicylate was added on June 20. Several of her home medications were discontinued. Her diarrhea gradually improved over the course of swing bed stay. On June 26 the antibiotics probiotics and bismuth subsalicylate were discontinued and she remained stable until discharge. Verapamil was added to Toprol-XL and her blood pressure improved. She will continue verapamil at discharge. Aspirin was discontinued and ferrous sulfate with vitamin C was given. Her hemoglobin was stable at 10.1 on June 27. On June 29 she was stable for discharge home. She will follow with her PCP Dr. Ferris within 1 week. - Time Spent with Patient Total time spent providing and/or coordinating discharge services: - Constitutional Vitals: Temp Pulse Resp BP Pulse Ox 98.7 F 98 16 123/69 94 06/29/17 07:19 06/29/17 07:19 06/29/17 07:19 06/29/17 07:19 06/29/17 07:19
--- NOTE | 2017-06-29 10:33 | Physician Discharge Referral ---
Home Health/Hosp Referral Info Transfer to: Home Health Attending Provider: Alfonso Provider in Charge Post Discharge: PCP (Cesar Ferris M.D.) - Diagnosis (1) C. difficile colitis Priority: Primary Status: Acute (2) Diabetes mellitus Priority: Secondary Status: Chronic (3) Hypertension Priority: Secondary Status: Chronic (4) Chronic renal insufficiency, stage III (moderate) Priority: Secondary Status: Chronic (5) Anemia Priority: Secondary Status: Chronic - Respiratory Orders Smoking Cessation: Smoking cessation has been advised. For more information, call the [place] Tobacco Quit Line at 0-834-EHJY-NOW. - Diet/Nutrition Diet/Nutrition Orders: Regular - Activity Activity Orders: Ambulate, Walker - Services Needed Following services are medically necessary services: Nursing, Home Health Aide, Physical Therapy, Occupational Therapy - Transfer Medications Prescriptions: Insulin Glargine [Lantus] 25 unit SQ HS 365 Days mls Verapamil ER (24 HR) [Calan SR] 180 mg PO DAILY #30 tablet.er Home Medications: Levothyroxine [Synthroid] 25 mcg PO QAM 08/09/15 [History] Carbidopa/Levodopa [Carbidopa-Levodopa 25-100 Tab] 1 each PO TID 02/05/17 [ History] Cranberry Conc/C/Bacill Coag [Azo Cranberry Tablet] 1 each PO DAILY PRN [History] Fenofibrate Nanocrystallized [Tricor] 48 mg PO DAILY 02/05/17 [History] Insulin ASPART [NovoLOG] 0 unit SQ TIDWM 02/22/17 [History] Metoprolol XL (24 HR) Succ [Toprol Xl] 25 mg PO DAILY #30 tab.er.24h 02/27/17 [ Rx] Multivit with Iron-Minerals [Compete] 1 each PO DAILY 06/13/17 [History] Acetaminophen [Tylenol] 650 mg PO Q6HR PRN tablet 06/16/17 [Rx] Ascorbic Acid [Vitamin C] 500 mg PO 0630 tablet 06/16/17 [Rx] Ferrous Sulfate 325 mg PO 0630 tablet 06/16/17 [Rx] Naloxone [Narcan] 0.4 mg IVP Q2MIN PRN inj 06/16/17 [Rx] Ferrous Sulfate 325 mg PO DAILY@0630 tablet 06/29/17 [Rx] Insulin Glargine [Lantus] 25 unit SQ HS 365 Days mls 06/29/17 [Rx] Verapamil ER (24 HR) [Calan SR] 180 mg PO DAILY #30 tablet.er 06/29/17 [Rx] Allergies/Adverse Reactions: 3 Allergy/AdvReac Type Severity Reaction Status Date / Time codeine Allergy Rash Verified 06/12/17 20:01 Certification: Further, I certify that my clinical findings support that this patient is homebound (i.e. absences from home require considerable and taxing effort and are for medical reasons or muslim services or infrequently or short duration when for other reasons) because: Homebound Reason: Leaving home requires considerable and taxing effort due to condition (Anemia with weakness, deconditioning, diarrhea) Attestation: My signature below is to certify that this patient is under my care and that I, or nurse practitioner, or a physician's video library assistant working with me, has a face-to -face encounter with this patient.
== END 2017-06-29 12:19 | disposition home health service (06) | DRG 945 ==
LOC: INPPIK 14:17
PROVIDERS: ADMIT Internal Medicine; ATTEND Internal Medicine